=== PATIENT | male | born 1945 | race Caucasian/White ===

== ENCOUNTER → 2019-12-29 08:13 | Outpatient (CLI) | payer MEDICARE, SELFPAY ==
--- NOTE | ~2019-12-29 | US_ITS ---
EXAMINATION: US retroperitoneal comp EXAM DATE: 12/29/2019 09:28 INDICATION: Hematuria, right flank pain. TECHNIQUE: Multiple grayscale and Doppler images of the kidneys were obtained (by a technologist who performed the scan) and subsequently reviewed. There is no prior study for comparison. FINDINGS: Right kidney: There is normal contour and echogenicity. It measures 11.0 x 4.4 x 6.2 centimeters. T here are no focal renal lesions identified. There is no hydronephrosis. Left kidney: There is normal contour and echogenicity. It measures 10.6 x 6.2 x 6.4 centimeters. Th ere are no focal renal lesions identified. There is no hydronephrosis. Bladder unremarkable. Both ureteral jets were confirmed. IMPRESSION: 1. Sonographically unremarkable kidneys. Reviewed, dictated and finalized at location B. DEVELOPER
== END ==
PROVIDERS: PCP Internal Medicine; Visit Provider Internal Medicine
DX: R10.9 Unspecified abdominal pain (principal); R31.9 Hematuria, unspecified
CPT/HCPCS: 76770

== ENCOUNTER 2021-08-03 16:43 | Outpatient (CLI) | payer MEDICARE, SELFPAY ==
[2021-08-03 18:46] LABS: SARS-CoV-2 RNA PCR Positive (Negative)
== END 2021-08-03 16:44 | disposition home or self-care (01) ==
LOC: CHSLAB 16:47
PROVIDERS: PCP Internal Medicine; Visit Provider Internal Medicine
DX: U07.1 COVID-19 (principal); R53.83 Other fatigue; R50.9 Fever, unspecified
CPT/HCPCS: C9803; U0003; U0005

== ENCOUNTER 2021-08-05 10:01 | Outpatient (CLI) | payer MEDICARE, SELFPAY ==
[2021-08-05] MEDS: FAMOTIDINE 20 MG TABLET PO (10:20)
[2021-08-05] MEDS: ACETAMINOPHEN 325 MG TABLET 650 MG PO (10:20)
[2021-08-05] MEDS: diphenhydrAMINE HCl CAP 25 MG CAPSULE PO (10:20)
[2021-08-05 10:48] VITALS: BMI 20.7
[2021-08-05 10:49] VITALS: BP 140/70; PULSE 80; RESP 16; TEMP 37.2; O2SAT 93
[2021-08-05 12:15] VITALS: BP 128/70; PULSE 68; RESP 14; TEMP 37.1; O2SAT 95
--- NOTE | 2021-08-05 12:16 | PC.NURSE ---
Patient here for IV Casirivimab and IMdevimab r/t being positive for covid and meeting high risk criteria. Education on medication given. Permit signed. Po pre meds and IV Casirivimab/Imdevimab administered. SEE MAR. Tolerated well. Safe exit of hospital.
== END 2021-08-05 10:02 | disposition home or self-care (01) ==
LOC: CHSLAB 10:03 → CHSTREATRM 10:04
PROVIDERS: PCP Internal Medicine; Visit Provider Internal Medicine
DX: Z23 Encounter for immunization (principal); U07.1 COVID-19
CPT/HCPCS: A9270; J7050; M0243

== ENCOUNTER 2021-08-09 20:50 | Inpatient (IN) | payer MEDICARE, SELFPAY ==
--- NOTE | ~2021-08-09 | CT_ITS ---
EXAMINATION: CT diagnostic chest wo con DATE: 08/09/2021 22:05 INDICATION: SOB dx with COVID on 08/03. increasing weakness and SOB TECHNIQUE: Computed tomography (CT) of the chest was performed without intravenous contrast. Addition al 3D reconstructions utilizing coronal maximum intensity projection (MIP) were performed. Automated exposure control and iterative reconstruction technique were employed. The dose-length product was 16 7.86 mGy-cm. COMPARISON: 01/17/2018 FINDINGS: Severe paraseptal bullous emphysema upper lungs at the periphery of the upper lobes. Small left pleur al effusion with dependent consolidation and in the bilateral lower lobes with some surrounding patch y groundglass opacities. There does appear to be some associated volume loss in the lower lobes sugge sting this represents at least some degree of atelectasis or there is however also bronchial wall thi ckening and some mucous plugging of the bronchi suggesting superimposed aspiration or pneumonia. No p ulmonary edema. Heart size is normal. Atherosclerotic coronary artery calcification. No pericardial e ffusion. Mildly ectatic ascending thoracic aorta measuring up to 3.9 cm . No pathologically enlarged thoracic lymphadenopathy. A couple small calcified gallstones in the normal-appearing nondistended ga llbladder. There are bridging osteophytes at multiple levels in the spine, consistent with diffuse idiopathic sk eletal hyperostosis (DISH). IMPRESSION: 1. Consolidation groundglass opacities in the dependent aspect of the bilateral lower lobes which cou ld represent atelectasis, aspiration, pneumonia or some combination thereof. Appearance and distribut ion would be atypical for COVID pneumonia. Line 2. Severe paraseptal emphysema at the upper lobes. 3. Cholelithiasis. Reviewed, dictated and finalized at location A. IMPRESSION: 1. Consolidation groundglass opacities in the dependent aspect of the bilateral lower lobes which could represent atelectasis, aspiration, pneumonia or some c ombination thereof. Appearance and distribution would be atypical for COVID pne umonia. Line 2. Severe paraseptal emphysema at the upper lobes. 3. Cholelithiasis.
[2021-08-09 21:18] VITALS: BP 108/79; PULSE 95; RESP 20; TEMP 38; O2SAT 90
--- NOTE | 2021-08-09 21:24 | ECG_ITS ---
Measurements Intervals [place] Rate: 93 P: 63 CT: 191 QRS: 48 QRSD: 83 T: 66 QT: 346 QTc: 432 Interpretive Statements SINUS RHYTHM CANNOT RULE OUT SEPTAL INFARCT, AGE INDETERMINATE BASELINE ARTIFACT- II, III, AVF, V1 ABNORMAL ECG Electronically Signed On 08-10-2021 6:50:32 CDT by Leonel Mckay D.O.
[2021-08-09 21:40] VITALS: PULSE 86; RESP 18; O2SAT 92
[2021-08-09 21:46] VITALS: PULSE 86; RESP 18; O2SAT 92
[2021-08-09] MEDS: ALBUTEROL SULFATE (*SP) INHALER 2 PUFF INHALATION (21:47)
[2021-08-09 21:53] LABS: Basophils Absolute Auto 0.01 K/mm3 (0.00-0.10); Basophils Percent Auto 0.1 % (0.0-1.0); HCO3 ABG 27.2 mmol/L (23-29); Hematocrit 37.8 % (37.0-46.0); Hemoglobin 12.9 g/dL (12.4-15.3); Immature Granulocyte Absolute 0.05 K/mm3 (0.00-0.00); Immature Granulocyte Percent A 0.7 % (0.0-0.0); Lymphocytes Absolute Auto 0.77 K/mm3 (1.10-4.50); Lymphocytes Percent Auto 10.2 % (18.0-42.0); Mean Corpuscular HGB Conc 34.1 g/dL (32.0-36.0); Mean Corpuscular Hemoglobin 33.1 pg (27.0-31.0); Mean Corpuscular Volume 96.9 fL (78.0-102.0); Mean Platelet Volume 9.5 fl (8.7-11.0); Monocytes Absolute Auto 0.79 K/mm3 (0.10-0.90); Monocytes Percent Auto 10.5 % (2.0-11.0); Neutrophils Absolute Auto 5.9 K/mm3 (1.7-7.2); Neutrophils Percent Auto 78.5 % (50.0-70.0); Oxygen Content ABG 18.3 %vol (16.0-22.0); Oxygen Saturation ABG 95.4 % (95-97); PCO2 ABG 36.2 mmHg (35-45); PO2 ABG 76.4 mmHg (75-85); Platelet Count Result 158 K/mm3 (150-420); Red Cell Distribution Width 13.2 % (11.6-14.4); Total Hemoglobin 13.8 g/dL (12.0-18.0); White Blood Count 7.5 K/mm3 (4.8-10.8); pH ABG 7.49 (7.35-7.45)
[2021-08-09 21:54] LABS: Device ROOM AIR; Modified Allen's Test Pass; Site Drawn RIGHT BRACHIAL
[2021-08-09] MEDS: ONDANSETRON INJ 4 MG/2 ML VIAL IV PUSH (22:05)
[2021-08-09] MEDS: methylPREDNISolone SOD SUCC 125 MG VIAL IV PUSH (22:05)
[2021-08-09] MEDS: SODIUM CHLORIDE 0.9% IV 1,000 ML 150 ML IV CONT (22:05)
[2021-08-09 22:06] VITALS: BP 137/73; PULSE 88; RESP 20; TEMP 38; O2SAT 90
[2021-08-09 22:11] LABS: Alanine Aminotransferase 27 U/L (16-63); Albumin Level 2.9 g/dL (3.4-5.0); Alkaline Phosphatase 65 U/L (46-116); Anion Gap 10 mmol/L (8-16); Aspartate Amino Transferase 29 U/L (15-37); Bilirubin,Total 0.8 mg/dL (0.00-1.00); Blood Urea Nitrogen 10 mg/dL (7-18); Calcium 8.6 mg/dL (8.5-10.1); Carbon Dioxide 26 mmol/L (21-32); Chloride 99 mmol/L (98-108); Estimated CRCL calculation 63 ml/min; Estimated Glomerular Filt Rate > 60; Glucose 107 mg/dL (70-99); Osmolality Calculated 279 mOsm/kg (285-295); Potassium 3.9 mmol/L (3.5-5.1); Sodium 135 mmol/L (136-145); Total Protein 6.8 g/dL (6.4-8.2); Troponin I 7.9 ng/L (0.00-60.4)
[2021-08-09 22:30] VITALS: PULSE 78; RESP 20; O2SAT 87
[2021-08-09 23:04] LABS: Add Urine Microscopic? YES; Appearance Urine Clear (Clear); Bilirubin Urine 1+ (Negative); Blood Urine 2+ (Negative); Color Urine Yellow (Yellow); Glucose Urine UA Negative (Negative); Ketones Urine 2+ (Negative); Leukocyte Esterase Ur Negative (Negative); Nitrate Urine Negative (Negative); Protein Urine Trace (Negative); Specific Grav Ur 1.015 (1.010-1.020); pH Urine 6.5 (5.0-8.0)
--- NOTE | 2021-08-09 23:15 | ED.SOB ---
HPI - SOB/Dyspnea General Chief Complaint: Shortness of Breath/Dyspnea Stated Complaint: trouble urinating, no appetite Time Seen by Provider: 08/09/21 20:52 Source: patient and RN notes reviewed Mode of arrival: ambulatory Limitations: no limitations History of Present Illness MD elicited complaint: shortness of breath and cough Pertinent past history: COPD and pneumonia Onset (ago): day(s) (5) Timing: progressively worsening Severity: mild Exacerbating factors: exertion Relieving factors: oxygen and bronchodilators Known history of: COPD Associated symptoms: cough Related Data Home Medications Medication Instructions Recorded Confirmed gabapentin 600 mg PO QID 08/09/21 08/09/21 Allergies Allergy/AdvReac Type Severity Reaction Status Date / Time iohexol AdvReac Difficulty Verified 08/05/21 10:39 [From contrast - CT, X-RAY] Breathing Review of Systems Review of Systems: All systems reviewed & are unremarkable except as noted in HPI and below PMFSH Past Medical History Medical History Community acquired pneumonia Exam Const: General: no acute distress Nutritional Appearance: well nourished Orientation/consciousness: patient oriented x3 HENMT: Head: normal to inspection Ears: external ears normal and TM's normal bilaterally General nose exam: Normal external nose present and Normal nares present Face and sinus: normal facial exam Mouth: Yes moist mucous membranes Eyes: Conjunctivae: conjunctivae normal Pupils: Equal, round and reactive pupils present EOM: EOMs intact bilaterally Neck: Neck: normal visual inspection and no lymphadenopathy Chest: Chest palpation & inspection: normal inspection of the chest Resp: Effort & Inspection: normal respiratory effort Cardio: Rate: regular rate Rhythm: regular rhythm GI: GI Palp: Yes Soft to palpation (non-tender) Percussion: Yes normal to percussion Auscultation: normal bowel sounds : General: Yes bladder normal to palpation and Yes no CVA tenderness Male General Exam: Yes normal external exam Testes: Testes normal Back/Spine/Pelvis: Back: no CVA tenderness Skin: General skin exam: normal color Rashes: no rashes Neuro: General: patient oriented x3, moves all extremities, no meningeal signs, no focal motor deficits and CN's II-XI intact bilaterally Extrem: General: normal to inspection and no pedal edema Psych: Mental Status: mental status grossly normal Affect: normal affect Thought content: Yes Normal thought content present Course Course Emergency Course: Pt was ill in the ED. For admission. Reevaluation(s) Date: 08/09/21 Time: 22:15 Vital Signs Vital signs: Vital Signs Temperature 38.0 C H 08/09/21 21:18 Pulse Rate 95 08/09/21 21:18 Respiratory Rate 20 08/09/21 21:18 Blood Pressure 108/79 08/09/21 21:18 Pulse Oximetry 90 08/09/21 21:18 Temperature 38.0 C H 08/09/21 22:06 Pulse Rate 88 08/09/21 22:06 Respiratory Rate 20 08/09/21 22:06 Blood Pressure 137/73 08/09/21 22:06 Pulse Oximetry 90 08/09/21 22:06 MDM - SOB/Dyspnea Differential Diagnosis Differential diagnosis: Likely acute exacerbation of chronic obstructive airways disease and community acquired pneumonia Medical Records Attestation: I reviewed the patient's medical records. Lab Data Attestation: I reviewed the patient's lab results. Result diagrams: 08/09/21 21:50 08/09/21 21:50 Labs: Lab Results 08/09/21 08/09/21 08/09/21 Range/Units 21:50 21:50 23:01 WBC 7.5 (4.8-10.8) K/mm3 RBC 3.90 L (4.70-6.10) M/mm3 Hgb 12.9 (12.4-15.3) g/dL Hct 37.8 (37.0-46.0) % MCV 96.9 (78.0-102.0) fL MCH 33.1 H (27.0-31.0) pg MCHC 34.1 (32.0-36.0) g/dL RDW 13.2 (11.6-14.4) % Plt Count 158 (150-420) K/mm3 MPV 9.5 (8.7-11.0) fl Immature Gran % (Auto) 0.7 H (0.0-0.0) % Neut % (Auto) 78.5 H (50.0-70
[2021-08-09] MEDS: ACETAMINOPHEN 325 MG TABLET 650 MG PO (23:20)
[2021-08-09] MEDS: IBUPROFEN 400 MG TABLET 800 MG PO (23:21)
[2021-08-09 23:24] LABS: Bacteria Urine Trace /hpf; Mucus Urine Few /lpf; Squamous Epithelial Cell Urine Rare /hpf (Few); WBC Urine 0-3 /hpf (0-3)
[2021-08-09 23:38] VITALS: BP 128/69; PULSE 78; RESP 20; TEMP 37.9; O2SAT 94
[2021-08-09 23:55] LABS: SARS-CoV-2 Ag Negative (Negative)
[2021-08-10] VITALS (12 sets, daily range): BP systolic 122–146; BP diastolic 65–66; PULSE 56–80; RESP 16–20; TEMP 35.9–37.7; O2SAT 93–98; BMI 19.1
--- NOTE | 2021-08-10 00:30 | ADMGEN ---
This patient, Jai Turpin, was admitted to 2nd Floor Room 212-1. Patient oriented to hospital policies and general routines including ID bracelet, bed and alarms, visiting hours, pain management, procedures, bathroom and other care routines, personal items, smoking policy, room service/diet, call light and visiting hours. Information on how to activate the Rapid Response Team has been discussed. Patient are encouraged to report perceived risks to care and to ask questions if they do not understand what they are told or what they should do. Patient alert and oriented. Color pink. Respirations even and unlabored. Patient reports SOB with exertion, though none noted when patient ambulated from stretcher outside of room to bed. Lungs diminished to all bajwa. O2 on @ 4 lpm/nc. Abd soft and non-distended with +BS present. No edema noted. IV NS infusing to site in left inner forearm without difficulty. No distress noted. Call light in reach.
[2021-08-10 02:07] LABS: SARS-CoV-2 RNA PCR Positive (Negative)
[2021-08-10] MEDS: SODIUM CHLORIDE 0.9% IV 1,000 ML 100 ML IV CONT ×2 (04:01→13:45)
[2021-08-10] MEDS: methylPREDNISolone SOD SUCC 125 MG VIAL IV PUSH ×2 (04:01→09:26)
[2021-08-10 05:21] LABS: Basophils Absolute Auto 0.01 K/mm3 (0.00-0.10); Basophils Percent Auto 0.1 % (0.0-1.0); Hematocrit 39.3 % (37.0-46.0); Immature Granulocyte Absolute 0.05 K/mm3 (0.00-0.00); Immature Granulocyte Percent A 0.6 % (0.0-0.0); Lymphocytes Absolute Auto 0.53 K/mm3 (1.10-4.50); Lymphocytes Percent Auto 6.6 % (18.0-42.0); Mean Corpuscular HGB Conc 33.1 g/dL (32.0-36.0); Mean Corpuscular Volume 99.7 fL (78.0-102.0); Monocytes Absolute Auto 0.35 K/mm3 (0.10-0.90); Monocytes Percent Auto 4.3 % (2.0-11.0); Neutrophils Absolute Auto 7.1 K/mm3 (1.7-7.2); Neutrophils Percent Auto 88.4 % (50.0-70.0); Platelet Count Result 165 K/mm3 (150-420); Red Blood Count 3.94 M/mm3 (4.70-6.10); Red Cell Distribution Width 13.2 % (11.6-14.4); White Blood Count 8.1 K/mm3 (4.8-10.8)
[2021-08-10 05:36] LABS: Alanine Aminotransferase 25 U/L (16-63); Albumin Level 2.8 g/dL (3.4-5.0); Alkaline Phosphatase 61 U/L (46-116); Anion Gap 8 mmol/L (8-16); Aspartate Amino Transferase 24 U/L (15-37); Bilirubin,Total 0.7 mg/dL (0.00-1.00); Blood Urea Nitrogen 14 mg/dL (7-18); Calcium 8.1 mg/dL (8.5-10.1); Carbon Dioxide 28 mmol/L (21-32); Chloride 102 mmol/L (98-108); Estimated CRCL calculation 47 ml/min; Estimated Glomerular Filt Rate > 60; Glucose 155 mg/dL (70-99); Osmolality Calculated 289 mOsm/kg (285-295); Potassium 4.8 mmol/L (3.5-5.1); Sodium 138 mmol/L (136-145); Total Protein 6.5 g/dL (6.4-8.2)
[2021-08-10] MEDS: ACETAMINOPHEN 325 MG TABLET 650 MG PO ×3 (05:51→20:58)
[2021-08-10] MEDS: ALBUTEROL SULFATE (*SP) INHALER 2 PUFF INHALATION ×4 (05:52→23:47)
[2021-08-10] MEDS: GABAPENTIN 300 MG CAPSULE 600 MG PO ×4 (07:44→20:57)
[2021-08-10] MEDS: guaiFENesin 12 HR 600 MG TABCR (09:00)
[2021-08-10] MEDS: guaiFENesin 600 MG/DEXTROMETHORPHAN 30 MG SR TAB 12 HR 1 TAB PO (09:25)
[2021-08-10] MEDS: guaiFENesin/DEXTROMETHORPHAN 5 ML UDC 10 ML PO ×3 (12:00→23:46)
[2021-08-10] MEDS: REMDESIVIR 200 MG/NS 250 ML 200 MG/250 ML BAG 250 MG IVPB (12:35)
--- NOTE | 2021-08-10 13:22 | PM.IMHP ---
H&P: HPI History of Present Illness Date/Time: 08/10/21 13:22 Jai Turpin is a 76 year old male who comes to the hospital for shortness of breath. Pt lives with his and daughter. His is currently in the hospital with COVID. Pt also has COPD and still smokes about 1 and a half PPD. Pt tested positive for COVID on 08/03/2021. <IRWIN Boyd - Last Filed: 08/10/21 15:28> Chief Complaint: Shortness of Breath <IRWIN Boyd - Last Filed: 08/10/21 15:28> [facility] Past Medical History Medical History: Medical History Community acquired pneumonia <IRWIN Boyd - Last Filed: 08/10/21 15:28> Family History Family History: Family History Other Unknown family medical history <IRWIN Boyd - Last Filed: 08/10/21 15:28> Social History Social History: Social History Smoking packs per day: 1.5 Smoking cigarettes per day: 30.0 Years smoked: 58 Smoking pack-years: 87.00 Smoking status: Current every day smoker Tobacco type: cigarettes Second hand tobacco smoke exposure: Yes Alcohol intake: former Substance use: never Substance use type: does not use Spiritual care concerns: No <IRWIN Boyd - Last Filed: 08/10/21 15:28> Meds Home Medications and Allergies Home medications: Home Medications Medication Instructions Recorded Confirmed Type gabapentin 600 mg PO QID 08/09/21 08/09/21 History <IRWIN Boyd - Last Filed: 08/10/21 15:28> Allergies/Adverse reactions: Allergies Allergy/AdvReac Type Severity Reaction Status Date / Time iohexol AdvReac Difficulty Verified 08/05/21 10:39 [From contrast - CT, X-RAY] Breathing <IRWIN Boyd - Last Filed: 08/10/21 15:28> Vital Signs Vital Signs - 24 hr 08/09/21 21:18 08/09/21 21:40 08/09/21 21:46 Temperature 100.4 F H Pulse Rate 95 86 86 Respiratory Rate 20 18 18 Blood Pressure 108/79 Pulse Oximetry 90 92 92 08/09/21 22:06 08/09/21 22:30 08/09/21 23:38 Temperature 100.4 F H 100.2 F H Pulse Rate 88 78 78 Respiratory Rate 20 20 20 Blood Pressure 137/73 128/69 Pulse Oximetry 90 87 L 94 08/10/21 00:03 08/10/21 00:12 08/10/21 00:25 Temperature 100 F H 99.4 F 97.5 F L Pulse Rate 72 Respiratory Rate 20 Blood Pressure 133/66 Pulse Oximetry 97 08/10/21 04:00 08/10/21 05:10 08/10/21 08:00 Temperature 96.6 F L Pulse Rate 80 72 70 Respiratory Rate 20 16 Blood Pressure 146/65 H Pulse Oximetry 97 98 08/10/21 10:43 Temperature Pulse Rate Respiratory Rate Blood Pressure Pulse Oximetry 98 <Duy Lopez, HORTICULTURAL MANAGER-C - Last Filed: 08/10/21 15:28> H&P: Results Labs Labs: Short CBC 08/09/21 08/10/21 Range/Units 21:50 05:14 WBC 7.5 8.1 (4.8-10.8) K/mm3 Hgb 12.9 13.0 (12.4-15.3) g/dL Hct 37.8 39.3 (37.0-46.0) % Plt Count 158 165 (150-420) K/mm3 [facility] 08/09/21 08/10/21 21:50 05:14 Sodium 135 L 138 Potassium 3.9 4.8 Chloride 99 102 Carbon Dioxide 26 28 BUN 10 14 Creatinine 0.69 L 0.93 Glucose 107 H 155 H Calcium 8.6 8.1 L Cardiac Enzymes 08/09/21 Range/Units 21:50 Troponin I 7.9 (0.00-60.4) ng/L Liver Function 08/09/21 08/10/21 Range/Units 21:50 05:14 Total Bilirubin 0.8 0.7 (0.00-1.00) mg/dL AST 29 24 (15-37) U/L ALT 27 25 (16-63) U/L Alkaline Phosphatase 65 61 (46-116) U/L Albumin 2.9 L 2.8 L (3.4-5.0) g/dL Urine 08/09/21 Range/Units 23:01 Urine Color Yellow (Yellow) Urine Appearance Clear (Clear) Urine pH 6.5 (5.0-8.0) Ur Specific [place] 1.015 (1.010-1.020) Urine Protein Trace H (Negative) Urine Glucose (UA) Negative (Negative) <Duy Lopez, HORTICULTURAL MANAGER-C - Last Filed: 08/10/21
[2021-08-10] MEDS: ENOXAPARIN 40 MG/0.4 ML SYRINGE SUB-Q (14:11)
--- NOTE | 2021-08-10 15:29 | PM.IMHP ---
H&P: HPI History of Present Illness Date/Time: 08/10/21 15:29 Jai Turpin is a 76 year old male who comes to the hospital for shortness of breath. Pt lives with his and daughter. His is currently in the hospital with COVID. Pt also has COPD and still smokes about 1 and a half PPD. Pt tested positive for COVID on 08/03/2021 and his symptoms started a few days prior. Pt denies fever, CP, abdominal pain, muscle and joint pain. He did say he was a little cold and had SOB with coughing. <IRWIN Boyd - Last Filed: 08/10/21 15:34> Chief Complaint: Shortness of Breath, Tested COVID positive on 08/03/2021 <IRWIN Boyd - Last Filed: 08/10/21 15:34> Review of Systems Constitutional: Constitutional: Reports no additional constitutional complaints, Denies body ache(s), Denies chills and Denies fever(s) <IRWIN Boyd - Last Filed: 08/10/21 15:34> Cardiovascular: Cardiovascular: Reports no additional cardiovascular complaints, Denies chest pain and Denies chest pain at rest <IRWIN Boyd - Last Filed: 08/10/21 15:34> Respiratory: Respiratory: Reports no additional respiratory complaints, Reports cough, Reports dyspnea and Reports dyspnea on exertion <IRWIN Boyd - Last Filed: 08/10/21 15:34> Gastrointestinal: Gastrointestinal: Reports no additional gastrointestinal complaints, Denies abdominal pain, Denies diarrhea, Denies nausea and Denies vomiting <IRWIN Boyd - Last Filed: 08/10/21 15:34> Genitourinary: Genitourinary: Reports no additional male genitourinary complaints <IRWIN Boyd - Last Filed: 08/10/21 15:34> Musculoskeletal: Musculoskeletal: Reports no additional musculoskeletal complaints, Denies back pain, Denies myalgias, Denies arthralgias and Reports muscle weakness <IRWIN Boyd - Last Filed: 08/10/21 15:34> Neurologic: Reports system reviewed and no additional complaints, except as documented, Denies dizziness, Denies syncope, Denies headache(s) and Denies focal weakness <IRWIN Boyd - Last Filed: 08/10/21 15:34> Psychiatric: Psychiatric: Reports no additional psychiatric complaints <IRWIN Boyd - Last Filed: 08/10/21 15:34> [facility] Past Medical History Medical History: Medical History Community acquired pneumonia <IRWIN Boyd - Last Filed: 08/10/21 15:34> Family History Family History: Family History Other Unknown family medical history <IRWIN Boyd - Last Filed: 08/10/21 15:34> Social History Social History: Social History Smoking packs per day: 1.5 Smoking cigarettes per day: 30.0 Years smoked: 58 Smoking pack-years: 87.00 Smoking status: Current every day smoker Tobacco type: cigarettes Second hand tobacco smoke exposure: Yes Alcohol intake: former Substance use: never Substance use type: does not use Spiritual care concerns: No <IRWIN Boyd - Last Filed: 08/10/21 15:34> Meds Home Medications and Allergies Home medications: Home Medications Medication Instructions Recorded Confirmed Type gabapentin 600 mg PO QID 08/09/21 08/09/21 History <IRWIN Boyd - Last Filed: 08/10/21 15:34> Allergies/Adverse reactions: Allergies Allergy/AdvReac Type Severity Reaction Status Date / Time iohexol AdvReac Difficulty Verified 08/05/21 10:39 [From contrast - CT, X-RAY] Breathing <IRWIN Boyd - Last Filed: 08/10/21 15:34> Vital Signs Vital Signs - 24 hr 08/09/21 21:18 08/09/21 21:40 08/09/21 21:46 Temperature 100.4 F H Pulse Rate 95 86 86 Respiratory Rate 20 18 18 Blood Pressure 108/79 Pulse Oximetry 90 92 92 08/09/21 22:06 08/09/21 22:30 08/09/21 23:38 Temperature 100.4 F H 100.
[2021-08-10] MEDS: DEXAMETHASONE SOD PHOS INJ 4 MG/ML VIAL 6 MG IV PUSH (17:13)
[2021-08-10] MEDS: BISACODYL 5 MG TABLET EC PO (17:13)
--- NOTE | 2021-08-10 17:30 | PC.NURSE ---
PT ASKED IF NURSE COULD CHECK HIS BLOOD SUGAR, STATES THAT HE JUST FEELS LIKE IT IS LOW, FSBS 288, PT JUST ATE DINNER. STATES HE JUST FEELS REALLY TIRED AND WHOOZY . ALSO STATES HE HASN'T SLEPT REALLY WELL IN A WHILE. HELPED REPOSITION PATIENT, COMFORTABLE, FRESH ICE WATER PROVIDED, CALL LIGHT IN REACH.
[2021-08-10 17:49] LABS: Glucose Point of Care 288 mg/dl (65-105)
[2021-08-10] MEDS: AMITRIPTYLINE HCL 25 MG TABLET 75 MG PO (20:57)
--- NOTE | 2021-08-10 21:36 | PC.NURSE ---
Patient continues on isolation for Covid 19. Patient on 2L per nasal cannula. Denies SOB, congestion nasal present. Continues with dry non productive cough. IS-1500, patient doing well with IS and encouraging from financial writer. Continue to monitor.
[2021-08-11] VITALS (8 sets, daily range): BP systolic 125–138; BP diastolic 67–74; PULSE 62–99; RESP 18–20; TEMP 35.8–36.8; O2SAT 90–98
[2021-08-11] MEDS: SODIUM CHLORIDE 0.9% IV 1,000 ML 100 ML IV CONT (04:35)
--- NOTE | 2021-08-11 05:13 | PC.NURSE ---
Patient has dislodged IV catheter to LFA. Leaking at insertion site. IV was removed from LFA. New IV insertion to [facility], 22g. Blood return noted. Denied any c/o pain during insertion. Flushes without difficulty. disability insurance hearing officer notified.
[2021-08-11] MEDS: ALBUTEROL SULFATE (*SP) INHALER 2 PUFF INHALATION ×2 (05:41→12:00)
[2021-08-11] MEDS: guaiFENesin/DEXTROMETHORPHAN 5 ML UDC 10 ML PO ×2 (05:41→11:58)
[2021-08-11] MEDS: ACETAMINOPHEN 325 MG TABLET 650 MG PO ×2 (05:41→14:22)
[2021-08-11 05:48] LABS: Hematocrit 34.5 % (37.0-46.0); Hemoglobin 11.4 g/dL (12.4-15.3); Mean Corpuscular Hemoglobin 32.9 pg (27.0-31.0); Mean Corpuscular Volume 99.7 fL (78.0-102.0); Mean Platelet Volume 9.9 fl (8.7-11.0); Platelet Count Result 199 K/mm3 (150-420); Red Blood Count 3.46 M/mm3 (4.70-6.10); Red Cell Distribution Width 13.2 % (11.6-14.4); White Blood Count 11.5 K/mm3 (4.8-10.8)
[2021-08-11 06:02] LABS: INR 1.1; Prothrombin Time 11.4 Seconds (9.50-12.10)
[2021-08-11 06:05] LABS: Alanine Aminotransferase 21 U/L (16-63); Anion Gap 5 mmol/L (8-16); Blood Urea Nitrogen 24 mg/dL (7-18); Carbon Dioxide 28 mmol/L (21-32); Chloride 103 mmol/L (98-108); Estimated CRCL calculation 43 ml/min; Estimated Glomerular Filt Rate > 60; Glucose 189 mg/dL (70-99); Osmolality Calculated 291 mOsm/kg (285-295); Potassium 4.7 mmol/L (3.5-5.1); Sodium 136 mmol/L (136-145)
[2021-08-11] MEDS: NICOTINE (*PBKC) 21 MG PATCH 1 PATCH TRANSDERM (08:03)
[2021-08-11] MEDS: BISACODYL 5 MG TABLET EC PO (08:04)
[2021-08-11] MEDS: GABAPENTIN 300 MG CAPSULE 600 MG PO ×2 (08:04→13:05)
[2021-08-11] MEDS: ENOXAPARIN 40 MG/0.4 ML SYRINGE SUB-Q (08:04)
--- NOTE | 2021-08-11 10:38 | HOMEO2EVAL ---
Evaluation was performed at [facility] Home Oxygen Evaluation RC: Home Oxygen (O2) Evaluation Start: 08/11/21 08:46 Freq: ONCE Status: Active Protocol: RPE Activity Type Activity Date Activity User E-Sign Co-Sign Detail Recorded Client Recorded Date Recorded By Document 08/11/21 08:46 KLV [id number] 08/11/21 10:06 KLV Document 08/11/21 10:24 SJB [id number] 08/11/21 10:38 SJB Document 08/11/21 10:30 SJB [id number] 08/11/21 10:38 SJB 08/11/21 08/11/21 08/11/21 08:46 10:24 10:30 Home O2 Evaluation Test Phase Resting Resting Exercise Oxygen Delivery Room Air Room Air Room Air Pulse Oximetry (90-100 %) 92 92 90 Pulse Rate (60-100 beats/min) 83 99 Activity Tolerance Good Rating of Perceived Dyspnea (PD) +1 Mild, Noticeable to the Participant but Not to an Observer Rate of Perceived Exertion (PE) 11 Fairly light Ambulation Distance (feet) 400 Home Oxygen Evaluation Comments Will begin walk Pt walked unassisted on room air approx . 400 ft. Sp02 remained WNL as well as HR. PLB encouraged . Treatment Charges O2 Evaluation - Inpatient
--- NOTE | 2021-08-11 11:00 | PM.DS ---
DS: Admitting Diagnosis Discharge Date 08/11/2021 Admitting Diagnosis COVID, COPD DS: Discharge Diagnosis Discharge Diagnosis (1) COVID: Code(s): U07.1 - COVID-19 Status: Acute Assessment and Plan: Positive PCR 08/03/2021, started Remdesivir, Decadron, Albuterol, Rocephin, Azithromycin, Pt given 125mg Methylprednisolone in ER and 1 dose on the floor this AM, supplemental oxygen currently 4L/min NC, expiratory wheezing with scattered rhonchi, no increased WOB or SOB, NS 100ml/h 08/11/2021 Pt is on RA with SpO2 of 93% or better, He passed his Home O2 test. Pt not having any SOB, mild rhonchi in posterior bases otherwise clear, normal respiratory effort (2) Community acquired pneumonia: Qualifiers: Laterality: unspecified laterality Qualified Code(s): J18.9 - Pneumonia, unspecified organism Code(s): J18.9 - Pneumonia, unspecified organism Status: Acute Assessment and Plan: Being covered with Rocephin and Azithromycin, radiology report IMPRESSION: 1. Consolidation groundglass opacities in the dependent aspect of the bilateral lower lobes which could represent atelectasis, aspiration, pneumonia or some combination thereof. Appearance and distribution would be atypical for COVID pneumonia. 2. Severe paraseptal emphysema at the upper lobes. 3. Cholelithiasis. will give Incentive Spirometer. 08/11/2021 will send home with Ab to complete course (3) Acute exacerbation of chronic obstructive airways disease: Code(s): J44.1 - Chronic obstructive pulmonary disease with (acute) exacerbation Status: Acute Assessment and Plan: Pt had Methylprednisolone in ER and on the floor, now just Decadron, supplemental oxygen, Albuterol, Robitussin DM Q6H, Ipratropium and Tiotropium, Rocephin and Azithromycin as noted above. 08/11/2021 will send home with steroid taper pack, Pt doing well, RA with SpO2 93% or better. DS: Summary Hospital Course Hospital Course: Pt has no SOB,l on RA with SpO2 93% or better, improved lung sounds. Time Spent with Patient Time attestation: Total time spent providing and/or coordinating discharge services: < 30 Minutes Exam Const: General: cooperative, comfortable, no acute distress, alert, awake and Physically active Nutritional Appearance: thin Resp: Effort & Inspection: normal respiratory effort Auscultation: rhonchi (mild in posteroir basis) Cardio: Rate: regular rate Heart sounds: S1 normal heart sound present and S2 normal heart sound present GI: GI Palp: Yes Soft to palpation and No Tenderness to palpation present (GI) Auscultation: normal bowel sounds Skin: General skin exam: normal color and dry skin Neuro: General: oriented to person, oriented to place and oriented to time Cranial nerves: Yes CN's II-XII intact bilaterally (grossly intact) Cognition (Neuro): normal cognition Extrem: General: full ROM and no pedal edema Psych: Appearance: grossly normal Mental Status: mental status grossly normal Speech and movement: Normal speech and movement present Affect: normal affect Attitude: cooperative Thought process: Normal thought process present DS: Data Data Completed and Pending Labs on day of discharge: Labs from last 24 hours 08/11/21 08/11/21 08/11/21 05:42 05:42 05:42 WBC 11.5 H RBC 3.46 L Hgb 11.4 L Hct 34.5 L MCV 99.7 MCH 32.9 H MCHC 33.0 RDW 13.2 Plt Count 199 MPV 9.9 PT 11.4 INR 1.1 Sodium 136 Potassium 4.7 Chloride 103 Carbon Dioxide 28 Anion Gap 5 L BUN 24 H Creatinine 1.04 Estim Creat Clear Calc 43 Estimated GFR > 60 Glucose 189 H POC Capillary Glucose Calculated Osmolality 291 Calcium 8.0 L ALT 08/10/21 17:33 WBC RBC Hgb Hct MCV MCH MCHC RDW Plt Count MPV PT INR Sodium Potassium Chloride Carbon Dioxide Anion Gap BUN Creatinine Estim Creat Clear Calc Estimated GFR Glucose POC Capill
--- NOTE | 2021-08-11 11:54 | PC.NURSE ---
patient is tolerating well on room air. 94%. iv fluids stopped.
[2021-08-11] MEDS: REMDESIVIR 100 MG/NS 250 ML 100 MG/250 ML BAG 250 MG IVPB (11:59)
--- NOTE | 2021-08-11 16:10 | PC.NURSE ---
Patient discharged home transported by family member via personal vehicle. Discharge instructions given and patient acknowledged understanding. IV site discontinued and removed. personal belongings bagged and carried out w/Staff escorting patient to main entrance ambulating per self w/no assist and placed in vehicle for transport home with spouse and family member.
--- NOTE | 2021-08-18 13:50 | PC.NURSE ---
Unable to contact for discharge call back.
== END 2021-08-11 16:07 | disposition home health service (06) | DRG 177 ==
LOC: CHSED 23:16 → CHS2ND 08-10 07:20
PROVIDERS: Admitting Provider Emergency Medicine; Emergency Provider Emergency Medicine; PCP Internal Medicine; Visit Provider Nurse Practitioner Family
DX: U07.1 COVID-19 (principal); J18.9 Pneumonia, unspecified organism; J44.0 Chronic obstructive pulmonary disease with (acute) lower respiratory infection; J44.1 Chronic obstructive pulmonary disease with (acute) exacerbation; F17.200 Nicotine dependence, unspecified, uncomplicated
CPT/HCPCS: 36415; 36600; 71250; 80048; 80053; 81001; 82805; 82948; 84460; 84484; 85025; 85027; 85610; 87040; 87426; 93005; 94618; 94640; 96365; 96375; 99285; A9270; C9803; J0456; J0696; J1100; J1650; J2405; J2930; J7030; U0003; U0005

== ENCOUNTER 2021-08-22 13:54 | Outpatient (CLI) | payer MEDICARE, SELFPAY ==
--- NOTE | ~2021-08-22 | XR_ITS ---
XR chest 2V DATE: 08/22/2021 15:00 INDICATION: Covid pneumonia TECHNIQUE: PA and lateral views COMPARISON: 08/09/2021 CT chest FINDINGS: Bilateral hyperinflation, consistent with COPD. No pulmonary consolidation, pleural effusion, pulmonary vascular congestion or pneumothorax is eviden t. Normal heart size. Aortic calcification and unfolding. No hilar or mediastinal enlargement. Osteopenia. Degenerative spurring of the thoracic spine. IMPRESSION: COPD Reviewed, dictated and finalized at location A. IMPRESSION: COPD
[2021-08-22 14:20] LABS: Basophils Absolute Auto 0.02 K/mm3 (0.00-0.10); Basophils Percent Auto 0.3 % (0.0-1.0); Eosinophils Absolute Auto 0.07 K/mm3 (0.02-0.50); Eosinophils Percent Auto 1.2 % (1.0-6.0); Hematocrit 37.1 % (37.0-46.0); Hemoglobin 12.2 g/dL (12.4-15.3); Immature Granulocyte Absolute 0.03 K/mm3 (0.00-0.00); Immature Granulocyte Percent A 0.5 % (0.0-0.0); Lymphocytes Absolute Auto 1.16 K/mm3 (1.10-4.50); Lymphocytes Percent Auto 19.4 % (18.0-42.0); Mean Corpuscular HGB Conc 32.9 g/dL (32.0-36.0); Mean Corpuscular Hemoglobin 33.5 pg (27.0-31.0); Mean Corpuscular Volume 101.9 fL (78.0-102.0); Mean Platelet Volume 9.2 fl (8.7-11.0); Monocytes Absolute Auto 0.77 K/mm3 (0.10-0.90); Monocytes Percent Auto 12.9 % (2.0-11.0); Neutrophils Absolute Auto 3.9 K/mm3 (1.7-7.2); Neutrophils Percent Auto 65.7 % (50.0-70.0); Platelet Count Result 228 K/mm3 (150-420); Red Blood Count 3.64 M/mm3 (4.70-6.10); Red Cell Distribution Width 13.7 % (11.6-14.4)
[2021-08-22 14:35] LABS: Alanine Aminotransferase 27 U/L (16-63); Albumin Level 3.2 g/dL (3.4-5.0); Alkaline Phosphatase 75 U/L (46-116); Anion Gap 6 mmol/L (8-16); Aspartate Amino Transferase 20 U/L (15-37); Bilirubin,Total 0.5 mg/dL (0.00-1.00); Blood Urea Nitrogen 15 mg/dL (7-18); Calcium 9.2 mg/dL (8.5-10.1); Carbon Dioxide 33 mmol/L (21-32); Chloride 103 mmol/L (98-108); Estimated Glomerular Filt Rate > 60; Glucose 97 mg/dL (70-99); Osmolality Calculated 294 mOsm/kg (285-295); Potassium 5.2 mmol/L (3.5-5.1); Sodium 142 mmol/L (136-145); Total Protein 7.1 g/dL (6.4-8.2)
== END 2021-08-22 13:55 | disposition home or self-care (01) ==
PROVIDERS: PCP Internal Medicine; Visit Provider Internal Medicine
DX: U07.1 COVID-19 (principal); J12.82 Pneumonia due to coronavirus disease 2019; J44.0 Chronic obstructive pulmonary disease with (acute) lower respiratory infection
CPT/HCPCS: 36415; 71046; 80053; 85025

== ENCOUNTER → 2022-06-03 00:10 | Outpatient (CLI) | payer MEDICARE, SELFPAY ==
[2022-06-03 11:31] LABS: SARS-CoV-2 RNA PCR Negative
== END ==
PROVIDERS: PCP Internal Medicine; Visit Provider Internal Medicine
DX: Z20.822 Contact with and (suspected) exposure to COVID-19 (principal); R06.02 Shortness of breath; R05.9 Cough, unspecified
CPT/HCPCS: C9803; U0003; U0005

== ENCOUNTER → 2022-06-08 11:25 | Outpatient (CLI) | payer MEDICARE, SELFPAY ==
--- NOTE | ~2022-06-08 | XR_ITS ---
XR chest 2V 06/08/2022 11:50 Indication: Shortness of breath and cough Procedure: 2 view chest Comparison: 08/22/2021 Findings: There is a large left pneumothorax with collapse of the left lung. Small left pleural effus ion. The lungs are hyperinflated which is consistent with, but not diagnostic of chronic obstructive pulmonary disease. Heart size normal. Impression: 1: Large left pneumothorax with collapse of the left lung. Reviewed, dictated and finalized at location A. Impression: 1: Large left pneumothorax with collapse of the left lung.
== END ==
PROVIDERS: PCP Internal Medicine; Visit Provider Internal Medicine
DX: R06.02 Shortness of breath (principal); R05.9 Cough, unspecified; J93.9 Pneumothorax, unspecified; J98.19 Other pulmonary collapse
CPT/HCPCS: 71046

== ENCOUNTER 2022-06-08 12:07 | Outpatient (CLI) | payer MEDICARE, SELFPAY ==
[2022-06-08 13:32] LABS: Influenza Control Positive
== END 2022-06-08 12:08 | disposition home or self-care (01) ==
LOC: ANHLAB 12:14
PROVIDERS: PCP Internal Medicine; Visit Provider Internal Medicine
DX: R06.02 Shortness of breath (principal); R05.9 Cough, unspecified
CPT/HCPCS: 87081; 87804; 87880

== ENCOUNTER 2022-06-08 15:43 | Inpatient (IN) | payer MEDICARE, SELFPAY ==
[2022-06-08] VITALS (10 sets, daily range): BP systolic 110–144; BP diastolic 67–89; PULSE 64–115; RESP 18–22; TEMP 37.2; O2SAT 93–100
--- NOTE | ~2022-06-08 | XR_ITS ---
XR chest 1V portable 06/11/2022 05:28 Indication: Left pneumothorax Procedure: AP portable chest Comparison: Comparison to multiple prior studies sequentially, with oldest reviewed study dated 06/08. Findings: Stable position to left chest tube. Stable small left pneumothorax. There is near complete consolidation of the left lung. There is persistent diffuse subcutaneous emphysema. There is bilatera l airspace disease which may represent edema, atelectasis and/or pneumonia. Impression: 1: Diffuse bilateral airspace disease, left greater than right which may represent edema, atelectasis and/or pneumonia. 2: Stable small left pneumothorax. Stable position to left chest tube. Reviewed, dictated and finalized at location A. Impression: 1: Diffuse bilateral airspace disease, left greater than right which may repres ent edema, atelectasis and/or pneumonia. 2: Stable small left pneumothorax. Stable position to left chest tube.
--- NOTE | ~2022-06-08 | XR_ITS ---
EXAMINATION: XR chest-chest tube insert/pos Exam Date/Time: 06/10/2022 15:10 CDT HISTORY: REPOSITIONED CHEST TUBE Comparison: Same date at 5:40 AM. RESULT: Lines, tubes, and devices: Left chest tube retraction, side port remains within the thoracic cavity. Lungs and pleura: Decreased size of the now small left pneumothorax. Better aeration of the left syed g, diffuse airspace and interstitial opacities as well as volume loss. Increased interstitial opaciti es in the right lung. Cardiomediastinal silhouette: Stable cardiomediastinal silhouette. Other: No acute osseous or upper abdominal finding. Stable subcutaneous emphysema. IMPRESSION: Retracted left chest tube, in good position. Decreased size of the left pneumothorax. Improved aerati on of the left lung, with persistent atelectasis/consolidation. Mild interstitial edema. Similar diff use subcutaneous emphysema. Reviewed, dictated and finalized at location K. IMPRESSION: Retracted left chest tube, in good position. Decreased size of the left pneumot horax. Improved aeration of the left lung, with persistent atelectasis/consolid ation. Mild interstitial edema. Similar diffuse subcutaneous emphysema.
--- NOTE | ~2022-06-08 | XR_ITS ---
EXAMINATION: XR chest-chest tube insert/pos DATE: 06/09/2022 00:02 INDICATION: Chest tube placement TECHNIQUE: frontal view of the chest was obtained. COMPARISON: Chest radiograph dated 06/08/[address] dated 08/09/2021 FINDINGS: Significant improvement in aeration of the left lung with decrease in size of a now small left pneumo thorax. Unchanged left chest tube. Diffuse coarse airspace opacities throughout the left lung which c ould represent atelectasis, pulmonary edema or pneumonia superimposed over emphysema, the latter for better appreciated on prior chest CT. The right lung remains clear. No pleural effusion or right-side d pneumothorax. Cardiomediastinal silhouette is normal. Subcutaneous emphysema on the lateral left ch est wall. IMPRESSION: 1. Decrease in size of a now small left pneumothorax with unchanged left chest tube. 2. Opacities throughout the left lung which could represent atelectasis, pulmonary edema or pneumonia superimposed over emphysema. Reviewed, dictated and finalized at location A. IMPRESSION: 1. Decrease in size of a now small left pneumothorax with unchanged left chest tube. 2. Opacities throughout the left lung which could represent atelectasis, pulmon gene edema or pneumonia superimposed over emphysema.
--- NOTE | ~2022-06-08 | XR_ITS ---
EXAMINATION: XR chest 1V portable DATE: 06/14/2022 06:16 INDICATION: Pneumothorax present with crepitus and discomfort around chest tube site. TECHNIQUE: frontal view of the chest was obtained. COMPARISON: Chest radiograph dated 06/13/2022 FINDINGS: No significant change in the small paramediastinal left pneumothorax. There is been some improvement in the coarse reticular and airspace opacities in the left mid to lower lung zone. Consolidation at t he margins of the left lower lung zone which could represent additional lung disease or possibly smal l pleural effusion. Increased lucency and architectural distortion at the upper lung zones consistent with emphysema. Mild right apical pleural-parenchymal scarring. No right-sided pneumothorax or pleur al effusion. The cardiomediastinal silhouette is normal. No significant interval change in subcutaneo us gas in the left chest wall extending into the base of the neck of the right and to lesser degree l eft as well as into the proximal aspect of the left upper arm. IMPRESSION: 1. Unchanged small left pneumothorax or potentially hydropneumothorax. 2. Interval decrease in the mid and upper lung zones of the diffuse coarse reticular and airspace opa cities throughout the left lung consistent with improving atelectasis, pulmonary edema or pneumonia s uperimposed over emphysema. Reviewed, dictated and finalized at location A. IMPRESSION: 1. Unchanged small left pneumothorax or potentially hydropneumothorax. 2. Interval decrease in the mid and upper lung zones of the diffuse coarse reti cular and airspace opacities throughout the left lung consistent with improving atelectasis, pulmonary edema or pneumonia superimposed over emphysema.
--- NOTE | ~2022-06-08 | XR_ITS ---
EXAMINATION: XR chest-chest tube insert/pos DATE: 06/08/2022 17:58 INDICATION: Left pneumothorax status post chest tube placement. TECHNIQUE: A single frontal view of the chest was obtained. COMPARISON: Chest 2 views at 11:50 AM, chest CT 08/09/2021 FINDINGS: There is a moderate-sized left pneumothorax. There are lucencies and reticular opacities in the lungs, consistent with emphysema. There is atelectasis in left upper lobe and left lower lobe. T here is a left-sided chest tube. No pleural effusion. The heart size is normal. IMPRESSION: 1. Moderate-sized left pneumothorax with improvement status post chest tube placement. 2. Emphysema. Reviewed, dictated and finalized at location A. IMPRESSION: 1. Moderate-sized left pneumothorax with improvement status post chest tube tressa cement. 2. Emphysema.
--- NOTE | ~2022-06-08 | XR_ITS ---
EXAMINATION: XR chest 2V DATE: 06/13/2022 07:50 INDICATION: Pneumothorax TECHNIQUE: AP and lateral views of the chest were obtained. COMPARISON: Chest radiograph dated 06/12/2022 FINDINGS: Left chest tube has been removed. There is a persistent small left pneumothorax now seen primarily al evelina the mediastinal aspect of the upper lung zone as well as anteriorly. Again seen are coarse reticu lar and patchy airspace opacities throughout the left lung but with significant improvement of aerati on of the previously densely consolidated left mid to lower lung zones. Small left pleural effusion n ot excludable. No right-sided pleural effusion or pneumothorax. The cardiomediastinal silhouette is n ormal. Chronic mild anterior wedging of a few mid thoracic vertebral bodies. There are bridging osteo phytes at multiple levels consistent with diffuse idiopathic skeletal hyperostosis (DISH). Persistent subcutaneous edema along the left hemithorax. IMPRESSION: 1. No significant interval change in a residual small left pneumothorax post left chest tube removal. 2. Significant improvement in aeration in the left mid to lower lung zones with persistent coarse ret icular and patchy airspace opacities throughout the left lung which could represent atelectasis or pn eumonia, potentially with small left pleural effusion. Reviewed, dictated and finalized at location A. IMPRESSION: 1. No significant interval change in a residual small left pneumothorax post le ft chest tube removal. 2. Significant improvement in aeration in the left mid to lower lung zones with persistent coarse reticular and patchy airspace opacities throughout the left lung which could represent atelectasis or pneumonia, potentially with small lef t pleural effusion.
--- NOTE | ~2022-06-08 | XR_ITS ---
EXAMINATION: XR chest 1V portable DATE: 06/09/2022 05:50 INDICATION: Dyspnea. Pneumothorax. TECHNIQUE: frontal view of the chest was obtained. COMPARISON: Chest radiograph dated 06/08/2022 FINDINGS: Slight increase in size of a moderate left pneumothorax. Left chest tube remains positioned along the lateral side of the partially collapsed left lung. There are coarse reticular opacities in the left mid to upper lung with increasing more dense consolidation in the left lower lung zone. Calcified nod ule in the right lung consistent with old granulomatous disease. No pleural effusion or right-sided p neumothorax. Increased lucency and architectural distortion at the right upper lung zone consistent w ith underlying emphysema. Cardiomediastinal silhouette is normal. IMPRESSION: 1. Slight increase in a still moderate-sized left pneumothorax with increasing collapse of the left l kellee. 2. Opacities throughout the left lung with worsening consolidation in the left lower lung zone which could represent atelectasis, pneumonia or combination thereof.- 3. Emphysema. Reviewed, dictated and finalized at location A. IMPRESSION: 1. Slight increase in a still moderate-sized left pneumothorax with increasing collapse of the left lung. 2. Opacities throughout the left lung with worsening consolidation in the left lower lung zone which could represent atelectasis, pneumonia or combination the reof.- 3. Emphysema.
--- NOTE | ~2022-06-08 | XR_ITS ---
XR chest 1V portable 06/10/2022 05:51 Indication: Left pneumothorax Procedure: AP portable chest Comparison: Comparison to multiple prior studies sequentially, with oldest reviewed study dated 06/08. Findings: Moderate persistent left pneumothorax with collapse of the left lung. There is subcutaneous emphysema of the chest wall bilaterally and neck. Stable cardiomediastinal silhouette allowing for t echnique. Impression: 1: Persistent moderate left pneumothorax with stable position to chest tube. 2: Collapse of the left lung with diffuse consolidation. 3: Subcutaneous emphysema. Reviewed, dictated and finalized at location A. Impression: 1: Persistent moderate left pneumothorax with stable position to chest tube. 2: Collapse of the left lung with diffuse consolidation. 3: Subcutaneous emphysema.
--- NOTE | ~2022-06-08 | XR_ITS ---
EXAMINATION: XR chest 2V DATE: 06/12/2022 07:33 INDICATION: Left pneumothorax. Chest tube on waterseal. TECHNIQUE: frontal view of the chest was obtained. COMPARISON: Chest radiograph dated 06/11/2022 FINDINGS: Left chest tube remains in place with tip at the lateral aspect of the midlung zone. Unchanged small left pneumothorax at the lateral aspect of the upper lung zone. There is volume loss in the left stanton thorax with leftward shift of the heart and compensatory mild hyperexpansion of the right lung. Airsp page opacities throughout the left lung with dense consolidation in the left mid and lower lung zones. Increased lucency and architectural distortion of the apices of lungs with biapical pleural-parenchy mal scarring. Cardiac silhouette is obscured but is not enlarged. Centimeters subcutaneous emphysema along the left chest wall extending to the base of the neck on both the left and right. IMPRESSION: 1. Unchanged small left pneumothorax with unchanged position of a left chest tube. 2. Opacities throughout the left lung with dense consolidation in the left mid and lower lung zones w hich could represent atelectasis or pneumonia. Associated small left pleural effusion is also not exc ludable. Reviewed, dictated and finalized at location A. IMPRESSION: 1. Unchanged small left pneumothorax with unchanged position of a left chest tu be. 2. Opacities throughout the left lung with dense consolidation in the left mid and lower lung zones which could represent atelectasis or pneumonia. Associated small left pleural effusion is also not excludable.
--- NOTE | 2022-06-08 16:05 | ECG_ITS ---
Measurements Intervals [place] Rate: 87 P: 69 [place]: 214 QRS: 68 QRSD: 74 T: 57 QT: 351 QTc: 424 Interpretive Statements SINUS RHYTHM WITH FIRST DEGREE AV BLOCK ANTEROSEPTAL INFARCT, AGE INDETERMINATE BORDERLINE T WAVE ABNORMALITY- INFERIOR LEADS BASELINE WANDER- I, II, III ABNORMAL ECG Electronically Signed On 06-08-2022 16:27:06 CDT by Leonel Mckay D.O.
--- NOTE | 2022-06-08 16:06 | ED.SOB ---
HPI - SOB/Dyspnea General Chief Complaint: Shortness of Breath/Dyspnea Stated Complaint: abnormal cxr, collaped lung Time Seen by Provider: 06/08/22 15:56 Source: patient, RN notes reviewed and old records reviewed Mode of arrival: ambulatory Limitations: other (poor historian) History of Present Illness HPI Narrative: This is a 77 year old male who presents for evaluation of left collapse lung. Patient states 2 weeks ago he developed shortness of breath 2 weeks ago. HE also reports productive cough for 2-4 weeks. He has been using his daughter's inhaler with minimal relief. He denies chest pain, fever, nauesa, vomiting or leg weakness. He thinks he may have been diagnosed with COPD in the past. Related Data Home Medications Medication Instructions Recorded Confirmed gabapentin 300 mg capsule 600 mg PO QID 08/09/21 08/09/21 Allergies Allergy/AdvReac Type Severity Reaction Status Date / Time iohexol AdvReac Difficulty Verified 08/05/21 10:39 [From contrast - CT, X-RAY] Breathing Review of Systems Review of Systems: All systems reviewed & are unremarkable except as noted in HPI and below Constitutional: Constitutional: Denies chills, Denies fatigue and Denies fever(s) ENT: Reports nasal congestion Cardiovascular: Cardiovascular: Denies chest pain and Denies rapid heart rate Respiratory: Respiratory: Reports cough and Reports dyspnea Gastrointestinal: Gastrointestinal: Denies abdominal pain, Denies nausea and Denies vomiting Psychiatric: Psychiatric: Denies anxiety and Denies depression [facility] Past Medical History Medical History Community acquired pneumonia Emphysema of lung History of trigeminal neuralgia Surgical History Surgical History History of inguinal hernia repair Family History Family History Other Unknown family medical history Social History Social History Smoking packs per day: 1.5 Smoking cigarettes per day: 30.0 Years smoked: 58 Smoking pack-years: 87.00 Smoking status: Former smoker Tobacco type: cigarettes Second hand tobacco smoke exposure: Yes Additional smoking assessment comments: Quit smoking 10 months ago after having COVID Alcohol intake: former Substance use: never Substance use type: does not use Spiritual care concerns: No Exam Const: Nutritional Appearance: thin Orientation/consciousness: patient oriented x3 HENMT: Mouth: Yes lip normal and Yes moist mucous membranes Eyes: EOM: EOMs intact bilaterally Chest: Chest palpation & inspection: normal inspection of the chest Resp: Effort & Inspection: normal respiratory effort Auscultation: wheezes and breath sounds absent on th left Cardio: Rate: regular rate Rhythm: regular rhythm Heart sounds: no murmurs GI: GI Palp: Yes Soft to palpation, No Tenderness to palpation present (GI) and No Guarding due to palpation present (GI) Auscultation: normal bowel sounds Back/Spine/Pelvis: Back: no CVA tenderness Skin: General skin exam: normal color Rashes: no rashes Wounds: no wounds Neuro: General: patient oriented x3, moves all extremities and CN's II-XI intact bilaterally Extrem: General: normal to inspection Psych: Mental Status: mental status grossly normal Affect: normal affect Attitude: cooperative Course Reevaluation(s) Reevaluation #1: Patient is resting comfortable. He is 100% on 4 L NC. He has no complaints. He has been accepted to hospitalist service. Date: 06/08/22 Time: 19:59 Consultations Consultation #1: I notified Dr. Marks of Chest tube place. Patient still has moderate pneumothorax. He states patient can be monitored and if he worsens he will place a bigger chest tube. Date: 06/08/22 Time: 18:22 Vital Signs Vital sign
[2022-06-08 16:25] LABS: Basophils Percent Auto 0.4 % (0.2-1.2); Eosinophils Absolute Auto 0.2 K/mm3 (0-0.3); Eosinophils Percent Auto 2.1 % (0-4.4); Hemoglobin 12.5 g/dL (14.0-18.0); Immature Granulocyte Absolute 0.02 K/mm3 (0.00-0.031); Immature Granulocyte Percent A 0.3 % (0-0.5); Lymphocytes Percent Auto 19.2 % (18.3-44.2); Mean Corpuscular HGB Conc 32.1 g/dl (32-36); Mean Corpuscular Hemoglobin 31.6 pg (26-34); Mean Corpuscular Volume 98.5 fl (80-100); Mean Platelet Volume 9.2 fl (7.4-10.4); Monocytes Absolute Auto 0.7 K/mm3 (0.1-0.6); Monocytes Percent Auto 9.2 % (2.6-8.5); Neutrophils Percent Auto 68.8 % (45.5-73.1); Platelet Count Result 317 k/mm3 (150-375); Red Blood Count 3.96 M/mm3 (4.6-6.20); Red Cell Distribution Width 14.2 % (11.5-14.5); White Blood Count 7.3 K/mm3 (4.5-10.0)
[2022-06-08 16:33] LABS: Alanine Aminotransferase 16 U/L (6-50); Albumin Level 3.7 g/dL (3.5-5.1); Alkaline Phosphatase 79 U/L (38-126); Anion Gap 7 mmol/L (8-16); Aspartate Amino Transferase 29 U/L (17-59); Bilirubin,Total 0.4 mg/dL (0.2-1.3); Blood Urea Nitrogen 17 mg/dL (9-20); Calcium 9.6 mg/dL (8.4-10.2); Carbon Dioxide 30 mmol/L (22-30); Chloride 100 mmol/L (98-107); Estimated CRCL calculation 61 ml/min; Estimated Glomerular Filt Rate > 60; Glucose 142 mg/dL (65-110); Potassium 4.3 mmol/L (3.4-5.0); Sodium 137 mmol/L (137-145)
[2022-06-08 16:43] LABS: INR 1.1; Prothrombin Time 13.5 Seconds (11.1-14.7)
[2022-06-08 16:44] LABS: Partial Thromboplastin Time 28.5 SECONDS (22.3-36.8)
--- NOTE | 2022-06-08 16:45 | PM.CNGS ---
Assessment and Plan Assessment and plan (1) Pneumothorax, left: Code(s): J93.9 - Pneumothorax, unspecified Status: Acute Assessment and Plan: Patient with a large left pneumothorax. Chest tube will be placed in the ER. He is currently stable. We were consulted to follow the chest tube after admission. Continue chest tube to wall suction overnight. Repeat a chest x-ray tomorrow morning. Will follow with serial imaging and monitoring. Plan I have discussed the patient's case and plan of care with Dr. Marks. Thank you for allowing us to see the patient in consultation and we will continue to follow along with you. History of Present Illness Consult details Consult date: 06/08/22 Reason for consult: chest tube (Large left pneumothorax) Requesting physician: Farnaz Canales MD Narrative: This is a 77-year-old male who presented to the ER with outpatient chest x-ray results showing a large left pneumothorax. The patient reports having sinus drainage and a cough for the past 2-3 weeks. He has called his PCP last week, who was out of town. They ordered labs that he was doing through the weekend and early this week. He had a negative COVID test 5 days ago. He also had a negative influenza a and B, and negative strep test. His PCP called him with the chest x-ray results and he was directed to the ER for evaluation. ED physician consulted our service and plans to place a left-sided chest tube. Vital signs are stable. The patient is now seen in the ER. He reports noticing some worsening fatigue and slight shortness of breath over the past 2 weeks. He reports this became significantly worse over the past few days. Denies ever having history of a pneumothorax in the past. He is a long-time smoker but quit about 10 months ago after having COVID. Denies any trauma to the chest or falls recently. Review of Systems Review of Systems: All systems reviewed & are unremarkable except as noted in HPI and below PMFSH Past Medical History Medical History Community acquired pneumonia Emphysema of lung History of trigeminal neuralgia Surgical History Surgical History History of inguinal hernia repair Family History Family History Other Unknown family medical history Social History Social History Smoking packs per day: 1.5 Smoking cigarettes per day: 30.0 Years smoked: 58 Smoking pack-years: 87.00 Smoking status: Former smoker Tobacco type: cigarettes Second hand tobacco smoke exposure: Yes Additional smoking assessment comments: Quit smoking 10 months ago after having COVID Alcohol intake: former Substance use: never Substance use type: does not use Spiritual care concerns: No Meds Home Medications and Allergies Home Medications Medication Instructions Recorded Confirmed Type gabapentin 300 mg capsule 600 mg PO QID 08/09/21 08/09/21 History levofloxacin 500 mg tablet 500 mg PO DAILY #5 tabs 08/11/21 Rx methylprednisolone 4 mg tablets in See Rx Instructions PO .COMPLEX 08/11/21 Rx a dose pack (Medrol (David)) #21 ea Allergies Allergy/AdvReac Type Severity Reaction Status Date / Time iohexol AdvReac Difficulty Verified 08/05/21 10:39 [From contrast - CT, X-RAY] Breathing Vital Signs Vital Signs - 24 hr 06/08/22 15:57 Temperature 99 F Pulse Rate 99 Respiratory Rate 20 Blood Pressure 129/89 Pulse Oximetry 93 Oxygen Delivery Room Air Exam Const: General: comfortable, awake and acute distress mild and respiratory Nutritional Appearance: thin Orientation/consciousness: patient oriented x3 HENMT: Head: normocephalic and atraumatic Ears: hearing grossly normal bilaterally and external ears normal Mouth: Yes moist mucous
--- NOTE | 2022-06-08 17:20 | PC.NURSE ---
LUIS from Dr. Canales for 100 fentanyl and chiquis
[2022-06-08 18:41] LABS: SARS-CoV-2 RNA PCR Negative
--- NOTE | 2022-06-08 19:16 | PC.NURSE ---
Assuming care of pt.
--- NOTE | 2022-06-08 22:17 | PM.IMHP ---
H&P: HPI History of Present Illness Date/Time: 06/08/22 22:17 Chief Complaint: Dyspnea Narrative: Patient is a 69-year-old male past medical history of B12 deficiency, trigeminal neuralgia COPD emphysema presents to ED with complaints of dyspnea. Patient has COPD emphysema, worsening cough for last 2-3 weeks. He denies any trauma. He notes he was playing golf when all the sudden he developed his dypsnea. He is normally very active, lives with his and is independent. He has quit smoking cigarettes 10 months ago after getting diagnosed COVID-19. He states he has never had pneumothorax in the past. He does not take any medications for COPD. He takes gabapentin for trigeminal neuralgia and vitamin B12 supplement. In the ED: COVID negative, flu negative, labs within normal limits, chest x-ray shows large left pneumothorax with collapse of left lung. Patient then had chest tube placed by ER provider. After chest tube placement there is a moderate-sized left pneumothorax. Patient be admitted for further management of spontaneous pneumothorax. Surgery consulted to help monitor pneumothorax. Review of Systems Review of Systems: Constitutional: No Fever, No Chills, No Night Sweats, No Fatigue, No Malaise ENT/Mouth: No Hearing Changes, No Ear Pain, No Nasal Congestion, No Sinus Pain, No Hoarseness, No sore throat, No Rhinorrhea, No Swallowing Difficulty Eyes: No Eye Pain, No Redness, No Vision Changes Cardiovascular: No Chest Pain, No Palpitations, No Dyspnea on Exertion, No Orthopnea, No Claudication, No Edema Respiratory: Endorses productive cough, dyspnea Gastrointestinal: No Nausea, No Vomiting, No Diarrhea, No Constipation, No Abdominal Pain, No Heartburn, No Hematochezia, No Melena Genitourinary: No Dysuria, No Urinary Frequency, No Hematuria, No Urinary Incontinence, No Urgency Musculoskeletal: No Arthralgias, No Myalgias, No Joint Swelling, No Joint Stiffness, No Back Pain Skin: No Skin Lesions, No Pruritis, No Hair Changes Neuro: No Weakness, No Numbness, No Paresthesias, No Loss of Consciousness, No Syncope, No Dizziness, No Headache Psych: No Anxiety/Panic, No Depression, No Insomnia Heme: No Bruising, No Bleeding Lymph: No Adenopathy Endocrine: No Polyuria, No Polydipsia, No Temperature Intolerance [facility] Past Medical History Medical History Community acquired pneumonia Emphysema of lung History of trigeminal neuralgia Surgical History Surgical History History of inguinal hernia repair Family History Family History Other Unknown family medical history Social History Social History Smoking packs per day: 1.5 Smoking cigarettes per day: 30.0 Years smoked: 58 Smoking pack-years: 87.00 Smoking status: Former smoker Tobacco type: cigarettes Second hand tobacco smoke exposure: Yes Additional smoking assessment comments: Quit smoking 10 months ago after having COVID Alcohol intake: former Substance use: never Substance use type: does not use Spiritual care concerns: No Comments He states he does not know his family history, he left his family very young age. He thinks they are on multiple medications but does not know any medical conditions Meds Home Medications and Allergies Home Medications Medication Instructions Recorded Confirmed Type gabapentin 300 mg capsule 600 mg PO QID 08/09/21 08/09/21 History levofloxacin 500 mg tablet 500 mg PO DAILY #5 tabs 08/11/21 Rx methylprednisolone 4 mg tablets in See Rx Instructions PO .COMPLEX 08/11/21 Rx a dose pack (Medrol (David)) #21 ea Allergies Allergy/AdvReac Type Severity Reaction Status Date / Time iohexol AdvReac Difficulty Verified 08/05/21 10:39 [From contrast - CT, X-RAY] Breathing
--- NOTE | 2022-06-08 23:10 | ADMGEN ---
This patient, Jai Turpin, was admitted to Medical Room 347-01. Patient/family oriented to hospital policies and general routines including ID bracelet, bed and alarms, visiting hours, pain management, procedures, bathroom and other care routines, personal items, smoking policy, room service/diet, and visiting hours. Information on how to activate the Rapid Response Team has been discussed. Patient/Family are encouraged to report perceived risks to care and to ask questions if they do not understand what they are told or what they should do.
[2022-06-08 23:52] LABS: Alveolar/Arterial O2 Gradient 130.2 mmHg; Base Excess ABG 2.2 mEq/l (+/-2.0); Carboxyhemoglobin 0.3 % THb (0-2.0); Fractional Inspired Oxygen 32 %; HCO3 ABG 27.3 mEq/l (22.0-26.0); Methemoglobin ABG 0.4 %THb (0-1.5); PCO2 ABG 44.3 mmHg (35.0-45.0); PO2 FiO2 Ratio Arterial Blood 1.44 %; Reduced Hemoglobin 19.7 %THb (0-5.0); Total Hemoglobin 15.2 g/dL (12.0-18.0); pH ABG 7.408 (7.350-7.450)
[2022-06-08 23:55] LABS: Modified Allen's Test Pass; Oxygen Saturation ABG 82.2 % (95.0-100.0); Oxyhemoglobin 79.6 % THb (90.0-100.0); PO2 ABG 46.1 mmHg (80.0-100.0); Site Drawn LEFT RADIAL
[2022-06-08 23:56] LABS: Device NASAL CANNULA
[2022-06-09] VITALS (11 sets, daily range): BP systolic 80–92; BP diastolic 50–60; PULSE 79–121; RESP 16–24; TEMP 36.3–36.7; O2SAT 91–98; BMI 20.5
[2022-06-09] MEDS: FUROSEMIDE INJ 40 MG/4 ML VIAL IV PUSH (00:05)
[2022-06-09] MEDS: guaiFENesin 600 MG/DEXTROMETHORPHAN 30 MG SR TAB 12 HR 1 TAB PO ×3 (00:10→21:06)
[2022-06-09 00:46] LABS: NT Pro B Type Natriuretic Pept 296 pg/mL (5-100)
[2022-06-09 02:16] LABS: Alveolar/Arterial O2 Gradient 312.1 mmHg; Base Excess ABG 3.7 mEq/l (+/-2.0); Fractional Inspired Oxygen 60 %; HCO3 ABG 28.6 mEq/l (22.0-26.0); Oxygen Content ABG 19.8 %vol (16.0-22.0); Oxyhemoglobin 91.7 % THb (90.0-100.0); PCO2 ABG 43.6 mmHg (35.0-45.0); PO2 ABG 67.7 mmHg (80.0-100.0); PO2 FiO2 Ratio Arterial Blood 1.13 %; Total Hemoglobin 15.4 g/dL (12.0-18.0); pH ABG 7.434 (7.350-7.450)
[2022-06-09 02:18] LABS: Device HIGH FLOW NASAL CANN; Modified Allen's Test Pass; Site Drawn LEFT RADIAL
--- NOTE | 2022-06-09 09:04 | PM.PNGS ---
Progress Note: A&P Assessment and Plan (1) Pneumothorax, left: Code(s): J93.9 - Pneumothorax, unspecified Status: Acute Assessment and Plan: improved today, still c small air leak, cont on suction and recheck CXR in am, encourage IS, supplemental O2 as needed (2) COPD (chronic obstructive pulmonary disease): Code(s): J44.9 - Chronic obstructive pulmonary disease, unspecified Status: Acute Assessment and Plan: poor underlying lung function, will need f/u c pulmonology as outpt Subjective Subjective Date/Time Seen: 06/09/22 09:04 feels better this am, still c SOB but improved Review of Systems Review of Systems: All systems reviewed & are unremarkable except as noted in HPI and below Exam Const: General: cooperative, acute distress, in distress and ill appearing Resp: Effort & Inspection: audible wheezes Auscultation: wheezes and diminished lung sounds Other: small air leak Cardio: Rate: regular rate Rhythm: regular rhythm GI: Inspection: normal to inspection Objective Data Vital Signs Vital Signs: Vital Signs - 24 hr 06/08/22 15:57 06/08/22 17:31 06/08/22 18:01 Temperature 37.2 C Pulse Rate 99 76 76 Respiratory Rate 20 22 H 19 Blood Pressure 129/89 128/77 128/67 Pulse Oximetry 93 99 100 Oxygen Delivery Room Air Oxygen Flow Rate 06/08/22 18:51 06/08/22 18:51 06/08/22 19:16 Temperature Pulse Rate 71 70 Respiratory Rate 20 18 Blood Pressure 140/73 143/69 H Pulse Oximetry 100 100 100 Oxygen Delivery Nasal Cannula Oxygen Flow Rate 4 06/08/22 19:17 06/08/22 19:17 06/08/22 20:01 Temperature Pulse Rate 64 76 Respiratory Rate 22 H Blood Pressure 144/71 H Pulse Oximetry 100 100 Oxygen Delivery Nasal Cannula Oxygen Flow Rate 4 06/08/22 20:42 06/08/22 22:49 06/09/22 01:28 Temperature Pulse Rate 76 115 H 121 H Respiratory Rate 20 22 H 24 H Blood Pressure 138/74 110/83 Pulse Oximetry 99 94 93 Oxygen Delivery High Flow Nasal Cannula Oxygen Flow Rate 10 06/09/22 02:21 06/08/22 23:10 06/09/22 06:00 Temperature 36.4 C Pulse Rate 88 Respiratory Rate 24 H 16 Blood Pressure 92/50 L Pulse Oximetry 93 94 98 Oxygen Delivery High Flow Nasal Cannula High Flow Nasal Cannula Oxygen Flow Rate 7 7 06/09/22 01:30 Temperature Pulse Rate 121 H Respiratory Rate 24 H Blood Pressure Pulse Oximetry 93 Oxygen Delivery High Flow Nasal Cannula Oxygen Flow Rate 10 Intake/Output Intake/Output: Intake & Output 06/06/22 06/07/22 06/08/22 06/09/22 23:59 23:59 23:59 23:59 Intake Total 50 Output Total 300 Balance 50 -300 Meds/Results Medications: Active Medications Generic Name Dose Route Start Last Admin Trade Name Freq PRN Reason Stop Dose Admin Benzonatate 200 mg 06/08/22 22:18 Benzonatate 100 Mg Capsule PO TID PRN cough Cyanocobalamin 1,000 mcg 06/09/22 09:00 Cyanocobalamin 1,000 Mcg Tablet PO QAM DARYN Gabapentin 600 mg 06/09/22 09:00 Gabapentin 300 Mg Capsule PO QID DARYN Guaifenesin/Dextromethorphan 1 tab 06/09/22 09:00 Guaifenesin 600 Mg/Dextromethorphan 30 Mg Sr Tab 12 Hr PO Q12HR DARYN Acetaminophen 1,000 mg in 100 mls @ 400 mls/hr 06/08/22 19:51 Ofirmev 1,000 Mg Ivpb IVPB 06/09/22 19:50 Q6H PRN Mild Pain (1-3) or Fever Levofloxacin 750 mg 06/09/22 09:00 Levofloxacin 750 Mg Tablet PO DAILY DARYN Morphine Sulfate 4 mg 06/08/22 19:51 Morphine Sulfate (*Crx) 4 Mg/Ml Inj IV PUSH Q2H PRN Pain Rated 7-10 Ondansetron HCl 4 mg 06/08/22 19:51 Ondansetron Inj 4 Mg/2 Ml Vial IV PUSH Q4H PRN Nausea Radiology Results: ITS Impressions Chest X-Ray 06/09/22 07:42 IMPRESSION: 1. Decrease in size of a now small left pneumothorax with unchanged left chest tube. 2. Opacities throughout the left lung which could represent atelectasis, pulmonary edema or pneumonia superimposed
[2022-06-09] MEDS: GABAPENTIN 300 MG CAPSULE 600 MG PO ×3 (09:31→21:06)
[2022-06-09] MEDS: CYANOCOBALAMIN 1,000 MCG TABLET 1000 MCG PO (09:31)
[2022-06-09] MEDS: levoFLOXacin 750 MG TABLET PO (09:31)
--- NOTE | 2022-06-09 14:38 | PC.NURSE ---
Patient did not want his 1300 dose of gabapentin. Patient stated I do not need it at this time.
--- NOTE | 2022-06-09 16:31 | PC.NURSE ---
Patient only wants half the dose of gabapentin at this time. 300mg is dispensed rather than then the total dose of 600mg.
[2022-06-09] MEDS: SODIUM CHLORIDE 0.9% IV 250 ML 750 ML IV CONT (17:53)
--- NOTE | 2022-06-09 18:03 | PM.IMPN ---
Progress Note: A&P Assessment and Plan (1) Pneumothorax, left: Code(s): J93.9 - Pneumothorax, unspecified Status: Acute (2) COPD (chronic obstructive pulmonary disease): Code(s): J44.9 - Chronic obstructive pulmonary disease, unspecified Status: Acute Plan # spontaneous pneumothorax left lung -history of COPD emphysema, likely had bleb pop from his excessive coughing. no trauma as per history -pneumothorax is improving but still persistent, continue chest tube to suction -general surgeon consulted who is following case, possibility needing larger chest tube or VATS if persistent pneumothorax despite chest tube # COPD emphysema -with increased productive in cough, may be exacerbation -antibiotics Ancef given in the ED, will start Levaquin daily -continue supplemental oxygen to keep oxygen saturation greater than 90% -no wheezing, holding off on steroid -will give cough suppressants: Mucinex, Tessalon Perles -patient states he stop smoking cigarettes after COVID 19 10 months ago # other chronic conditions -trigeminal neuralgia: Continue home gabapentin -vitamin B12 deficiency: Continue vitamin B12 supplement -history of COVID-19 10 months ago Diet: Regular DVT prophylaxis: SCDs, holding chemoprophylaxis for possible needing larger chest tube Code status: Full code Disposition: Patient admitted for spontaneous pneumothorax, anticipate greater than 3 days for chest tube management. After chest tube is removed anticipate discharge home 06/09/2022 interval history: patient is 71-year-old male with history of COPD emphysema presented with spontaneous pneumothorax was seen by surgery service and chest tube was placed today patient the pain is better and able to breathe, patient had a chest x-ray still shows slight leak seen by surgery service recommending continue chest and reassess tomorrow with the chest x-ray and further recommendation to follow will continue to monitor. Subjective Date/time seen: 06/09/22 18:03 06/09/2022 interval history: patient is 71-year-old male with history of COPD emphysema presented with spontaneous pneumothorax was seen by surgery service and chest tube was placed today patient the pain is better and able to breathe, patient had a chest x-ray still shows slight leak seen by surgery service recommending continue chest and reassess tomorrow with the chest x-ray and further recommendation to follow will continue to monitor. Review of Systems Review of Systems: All systems reviewed & are unremarkable except as noted in HPI and below Exam Narrative: appears chronically ill Patient is comfortable, NAD HEENT: eyes are clear and none icteric LUNGS: normal respiratory effort HEART: RR S1S2 Lower extremities: no edema SKIN: nonjaundiced Neuro: grossly intact. Objective Data Vital Signs Vital Signs: Vital Signs - 24 hr 06/08/22 18:51 06/08/22 18:51 06/08/22 19:16 Temperature Pulse Rate 71 70 Respiratory Rate 20 18 Blood Pressure 140/73 143/69 H Pulse Oximetry 100 100 100 Oxygen Delivery Nasal Cannula Oxygen Flow Rate 4 06/08/22 19:17 06/08/22 19:17 06/08/22 20:01 Temperature Pulse Rate 64 76 Respiratory Rate 22 H Blood Pressure 144/71 H Pulse Oximetry 100 100 Oxygen Delivery Nasal Cannula Oxygen Flow Rate 4 06/08/22 20:42 06/08/22 22:49 06/09/22 01:28 Temperature Pulse Rate 76 115 H 121 H Respiratory Rate 20 22 H 24 H Blood Pressure 138/74 110/83 Pulse Oximetry 99 94 93 Oxygen Delivery High Flow Nasal Cannula Oxygen Flow Rate 10 06/09/22 02:21 06/08/22 23:10 06/09/22 06:00 Temperature 97.6 F Pulse Rate 88 Respiratory Rate 24 H 16 Blood Pressure 92/50 L Pulse Oximetry 93 94 98 Oxygen Delivery High Flow Nasal Cannula High Flow Nasal Cannula Oxygen Flow Rate 7 7 06/09/22 11:01 06/09/22 08:00 06/09/22 14:00 Temperature 97.3 F L Pulse Rate 79 Respiratory Rate 18 Blood Pressure 85/52 L
[2022-06-10] VITALS (8 sets, daily range): BP systolic 96–106; BP diastolic 53–66; PULSE 88–130; RESP 16–24; TEMP 36.6–36.8; O2SAT 90–94
[2022-06-10] MEDS: guaiFENesin 600 MG/DEXTROMETHORPHAN 30 MG SR TAB 12 HR 1 TAB PO ×2 (07:33→21:11)
[2022-06-10] MEDS: levoFLOXacin 750 MG TABLET PO (07:33)
[2022-06-10] MEDS: CYANOCOBALAMIN 1,000 MCG TABLET 1000 MCG PO (07:33)
[2022-06-10] MEDS: GABAPENTIN 300 MG CAPSULE 600 MG PO ×3 (07:33→21:10)
--- NOTE | 2022-06-10 15:03 | PM.PNGS ---
Progress Note: A&P Assessment and Plan (1) Pneumothorax, left: Code(s): J93.9 - Pneumothorax, unspecified Status: Acute Assessment and Plan: I reviewed the chest x-ray this morning and chest tube does not appear to be adequate the treating the pneumothorax. Tube appears to be kinked which is limiting evacuation. Chest tube was withdrawn about 15 cm at the bedside. Air and pleural fluid noted draining from chest tube once it was withdrawn. Will get repeat chest x-ray this afternoon to see if pneumothorax has improved and chest tube is in better position. If air leak persists, might need to consider replacing chest tube with larger sized tube or placement of a 2nd chest tube. (2) COPD (chronic obstructive pulmonary disease): Code(s): J44.9 - Chronic obstructive pulmonary disease, unspecified Status: Acute (3) Acute exacerbation of chronic obstructive airways disease: Code(s): J44.1 - Chronic obstructive pulmonary disease with (acute) exacerbation Status: Acute Subjective Subjective Date/Time Seen: 06/10/22 15:03 Interval history: Having worsening cough today. Pain seems to be well controlled. Exam Resp: Effort & Inspection: Actively coughing productive Auscultation: breath sounds absent on th left Other: Chest tube withdrawn about 15 cm. Re-sutured in place. Positive air leak noted in Pleur-evac. Objective Data Vital Signs Vital Signs: Vital Signs - 24 hr 06/09/22 17:49 06/09/22 18:35 06/09/22 22:00 Temperature 36.7 C Pulse Rate 86 Respiratory Rate 16 Blood Pressure 80/52 L 90/54 L 90/60 L Pulse Oximetry 98 Oxygen Delivery Oxygen Flow Rate 06/09/22 21:06 06/10/22 06:00 06/10/22 05:49 Temperature 36.8 C Pulse Rate 130 H 110 H Respiratory Rate 16 Blood Pressure 96/60 L Pulse Oximetry 98 93 Oxygen Delivery High Flow Therapy with Na Oxygen Flow Rate 5 06/10/22 07:40 06/10/22 08:30 06/10/22 08:00 Temperature Pulse Rate 102 H 102 H Respiratory Rate Blood Pressure 100/66 Pulse Oximetry 90 94 Oxygen Delivery High Flow Nasal Cannula High Flow Nasal Cannula Oxygen Flow Rate 5 5 06/10/22 14:00 Temperature 36.6 C Pulse Rate 113 H Respiratory Rate 24 H Blood Pressure 96/58 L Pulse Oximetry 93 Oxygen Delivery Oxygen Flow Rate Intake/Output Intake/Output: Intake & Output 06/07/22 06/08/22 06/09/22 06/10/22 23:59 23:59 23:59 23:59 Intake Total 50 1370 700 Output Total 300 300 Balance 50 1070 400 Meds/Results Medications: Active Medications Generic Name Dose Route Start Last Admin Trade Name Freq PRN Reason Stop Dose Admin Benzonatate 200 mg 06/08/22 22:18 Benzonatate 100 Mg Capsule PO TID PRN cough Cyanocobalamin 1,000 mcg 06/09/22 09:00 06/10/22 07:33 Cyanocobalamin 1,000 Mcg Tablet PO 1,000 mcg QAM DARYN Administration Gabapentin 600 mg 06/09/22 09:00 06/10/22 07:33 Gabapentin 300 Mg Capsule PO 600 mg QID DARYN Administration Guaifenesin/Dextromethorphan 1 tab 06/09/22 09:00 06/10/22 07:33 Guaifenesin 600 Mg/Dextromethorphan 30 Mg Sr Tab 12 Hr PO 1 tab Q12HR DARYN Administration Levofloxacin 750 mg 06/09/22 09:00 06/10/22 07:33 Levofloxacin 750 Mg Tablet PO 750 mg DAILY DARYN Administration Morphine Sulfate 4 mg 06/08/22 19:51 Morphine Sulfate (*Crx) 4 Mg/Ml Inj IV PUSH Q2H PRN Pain Rated 7-10 Ondansetron HCl 4 mg 06/08/22 19:51 Ondansetron Inj 4 Mg/2 Ml Vial IV PUSH Q4H PRN Nausea Radiology Results: ITS Impressions Chest X-Ray 06/10/22 06:54 Impression: 1: Persistent moderate left pneumothorax with stable position to chest tube. 2: Collapse of the left lung with diffuse consolidation. 3: Subcutaneous emphysema.
--- NOTE | 2022-06-10 15:47 | PM.IMPN ---
Progress Note: A&P Assessment and Plan (1) Pneumothorax, left: Code(s): J93.9 - Pneumothorax, unspecified Status: Acute (2) COPD (chronic obstructive pulmonary disease): Code(s): J44.9 - Chronic obstructive pulmonary disease, unspecified Status: Acute Plan # spontaneous pneumothorax left lung -history of COPD emphysema, likely had bleb pop from his excessive coughing. no trauma as per history -pneumothorax is improving but still persistent, continue chest tube to suction -general surgeon consulted who is following case, possibility needing larger chest tube or VATS if persistent pneumothorax despite chest tube # COPD emphysema -with increased productive in cough, may be exacerbation -antibiotics Ancef given in the ED, will start Levaquin daily -continue supplemental oxygen to keep oxygen saturation greater than 90% -no wheezing, holding off on steroid -will give cough suppressants: Mucinex, Tessalon Perles -patient states he stop smoking cigarettes after COVID 19 10 months ago # other chronic conditions -trigeminal neuralgia: Continue home gabapentin -vitamin B12 deficiency: Continue vitamin B12 supplement -history of COVID-19 10 months ago Diet: Regular DVT prophylaxis: SCDs, holding chemoprophylaxis for possible needing larger chest tube Code status: Full code Disposition: Patient admitted for spontaneous pneumothorax, anticipate greater than 3 days for chest tube management. After chest tube is removed anticipate discharge home 06/09/2022 interval history: patient is 71-year-old male with history of COPD emphysema presented with spontaneous pneumothorax was seen by surgery service and chest tube was placed today patient the pain is better and able to breathe, patient had a chest x-ray still shows slight leak seen by surgery service recommending continue chest and reassess tomorrow with the chest x-ray and further recommendation to follow will continue to monitor. 06/10/2022 interval history: patient is 71-year-old male with history of COPD emphysema presented with spontaneous pneumothorax was seen by surgery service and chest tube was placed, today patient had a chest x-ray still shows persistent pneumothorax seen by surgery service and suspect the chest tube is kinked as was pulled and correct repeat chest x-ray shows improved recommending continue chest and reassess tomorrow with the chest x-ray and further recommendation to follow will continue to monitor. Subjective Date/time seen: 06/10/22 15:47 06/10/2022 interval history: patient is 71-year-old male with history of COPD emphysema presented with spontaneous pneumothorax was seen by surgery service and chest tube was placed, today patient had a chest x-ray still shows persistent pneumothorax seen by surgery service and suspect the chest tube is kinked as was pulled and correct repeat chest x-ray shows improved recommending continue chest and reassess tomorrow with the chest x-ray and further recommendation to follow will continue to monitor. Exam Narrative: appears chronically ill Patient is comfortable, NAD HEENT: eyes are clear and none icteric LUNGS: normal respiratory effort HEART: RR S1S2 Lower extremities: no edema SKIN: nonjaundiced Neuro: grossly intact. Objective Data Vital Signs Vital Signs: Vital Signs - 24 hr 06/09/22 17:49 06/09/22 18:35 06/09/22 22:00 Temperature 98.0 F Pulse Rate 86 Respiratory Rate 16 Blood Pressure 80/52 L 90/54 L 90/60 L Pulse Oximetry 98 Oxygen Delivery Oxygen Flow Rate 06/09/22 21:06 06/10/22 06:00 06/10/22 05:49 Temperature 98.2 F Pulse Rate 130 H 110 H Respiratory Rate 16 Blood Pressure 96/60 L Pulse Oximetry 98 93 Oxygen Delivery High Flow Therapy with Na Oxygen Flow Rate 5 06/10/22 07:40 06/10/22 08:30 06/10/22 08:00 Temperature Pulse Rate 102 H 102 H Respiratory Rate Blood Pressure 100/66 Pulse Oximetry 90 94 Oxygen Del
[2022-06-11 05:24] LABS: Hematocrit 36.6 % (42.0-52.0); Hemoglobin 11.8 g/dL (14.0-18.0); Mean Corpuscular HGB Conc 32.2 g/dl (32-36); Mean Corpuscular Hemoglobin 31.8 pg (26-34); Mean Corpuscular Volume 98.7 fl (80-100); Mean Platelet Volume 9.5 fl (7.4-10.4); Platelet Count Result 230 k/mm3 (150-375); Red Blood Count 3.71 M/mm3 (4.6-6.20); White Blood Count 13.9 K/mm3 (4.5-10.0)
[2022-06-11 05:36] LABS: Anion Gap 2 mmol/L (8-16); Blood Urea Nitrogen 24 mg/dL (9-20); Calcium 8.5 mg/dL (8.4-10.2); Carbon Dioxide 36 mmol/L (22-30); Chloride 95 mmol/L (98-107); Estimated CRCL calculation 65 ml/min; Estimated Glomerular Filt Rate > 60; Glucose 95 mg/dL (65-110); Potassium 4.5 mmol/L (3.4-5.0); Sodium 133 mmol/L (137-145)
[2022-06-11 06:00] VITALS: BP 96/52; PULSE 110; RESP 20; TEMP 36.6; O2SAT 91
[2022-06-11 08:30] VITALS: O2SAT 93
[2022-06-11] MEDS: guaiFENesin 600 MG/DEXTROMETHORPHAN 30 MG SR TAB 12 HR 1 TAB PO ×2 (08:39→20:18)
[2022-06-11] MEDS: levoFLOXacin 750 MG TABLET PO (08:39)
[2022-06-11] MEDS: BENZONATATE 100 MG CAPSULE 200 MG PO ×2 (08:39→20:19)
[2022-06-11] MEDS: CYANOCOBALAMIN 1,000 MCG TABLET 1000 MCG PO (08:39)
[2022-06-11] MEDS: GABAPENTIN 300 MG CAPSULE 600 MG PO ×4 (08:39→20:18)
[2022-06-11 09:32] VITALS: O2SAT 93
--- NOTE | 2022-06-11 12:08 | PM.PNGS ---
Progress Note: A&P Assessment and Plan (1) Pneumothorax, left: Code(s): J93.9 - Pneumothorax, unspecified Status: Acute Assessment and Plan: slowly improving, minimal residual pneumothorax noted on chest x-ray this morning, no air leak repeat two view chest x-ray tomorrow morning on water seal (2) COPD (chronic obstructive pulmonary disease): Code(s): J44.9 - Chronic obstructive pulmonary disease, unspecified Status: Acute (3) Acute exacerbation of chronic obstructive airways disease: Code(s): J44.1 - Chronic obstructive pulmonary disease with (acute) exacerbation Status: Acute Subjective Subjective Date/Time Seen: 06/11/22 12:08 Interval history: Breathing is a little better today. Chest pain controlled. Exam Resp: Effort & Inspection: normal respiratory effort Auscultation: clear to auscultation bilaterally ( Coarse) Other: left chest tube in place with no air leak Objective Data Vital Signs Vital Signs: Vital Signs - 24 hr 06/10/22 14:00 06/10/22 20:13 06/10/22 20:00 Temperature 36.6 C 36.7 C Pulse Rate 113 H 88 Respiratory Rate 24 H 20 Blood Pressure 96/58 L 106/53 L Pulse Oximetry 93 93 93 Oxygen Delivery High Flow Nasal Cannula Oxygen Flow Rate 5 06/11/22 06:00 06/11/22 09:32 06/11/22 08:30 Temperature 36.6 C Pulse Rate 110 H Respiratory Rate 20 Blood Pressure 96/52 L Pulse Oximetry 91 93 93 Oxygen Delivery High Flow Nasal Cannula High Flow Nasal Cannula Oxygen Flow Rate 5 5 Intake/Output Intake/Output: Intake & Output 06/08/22 06/09/22 06/10/22 06/11/22 23:59 23:59 23:59 23:59 Intake Total 50 1370 940 240 Output Total 300 960 800 Balance 50 5828 -07 -593 Meds/Results Medications: Active Medications Generic Name Dose Route Start Last Admin Trade Name Freq PRN Reason Stop Dose Admin Benzonatate 200 mg 06/08/22 22:18 06/11/22 08:39 Benzonatate 100 Mg Capsule PO 200 mg TID PRN Administration cough Cyanocobalamin 1,000 mcg 06/09/22 09:00 06/11/22 08:39 Cyanocobalamin 1,000 Mcg Tablet PO 1,000 mcg QAM DARYN Administration Docusate Sodium 100 mg 06/11/22 21:00 Docusate Sodium 100 Mg Capsule PO Q12HR DARYN Gabapentin 600 mg 06/09/22 09:00 06/11/22 08:39 Gabapentin 300 Mg Capsule PO 600 mg QID DARYN Administration Guaifenesin/Dextromethorphan 1 tab 06/09/22 09:00 06/11/22 08:39 Guaifenesin 600 Mg/Dextromethorphan 30 Mg Sr Tab 12 Hr PO 1 tab Q12HR DARYN Administration Levofloxacin 750 mg 06/09/22 09:00 06/11/22 08:39 Levofloxacin 750 Mg Tablet PO 750 mg DAILY DARYN Administration Morphine Sulfate 4 mg 06/08/22 19:51 Morphine Sulfate (*Crx) 4 Mg/Ml Inj IV PUSH Q2H PRN Pain Rated 7-10 Ondansetron HCl 4 mg 06/08/22 19:51 Ondansetron Inj 4 Mg/2 Ml Vial IV PUSH Q4H PRN Nausea Polyethylene Glycol 17 gm 06/11/22 09:25 Polyethylene Glycol 3350 17 Gm Powd.Pack PO QAM PRN Constipation Radiology Results: ITS Impressions Chest X-Ray 06/11/22 07:32 Impression: 1: Diffuse bilateral airspace disease, left greater than right which may represent edema, atelectasis and/or pneumonia. 2: Stable small left pneumothorax. Stable position to left chest tube. Labs Labs: Laboratory Results - last 24 hr 06/11/22 06/11/22 05:15 05:15 WBC 13.9 H RBC 3.71 L Hgb 11.8 L Hct 36.6 L MCV 98.7 MCH 31.8 MCHC 32.2 RDW 14.0 Plt Count 230 MPV 9.5 Sodium 133 L Potassium 4.5 Chloride 95 L Carbon Dioxide 36 H Anion Gap 2 L BUN 24 H Creatinine 0.70 Estim Creat Clear Calc 65 Estimated GFR > 60 Glucose 95 Calcium 8.5 Imaging Radiologist's impression: Impressions Chest X-Ray 06/10/22 15:25 IMPRESSION: Retracted left chest tube, in good position. Decreased size of the left pneumothorax. Improved aeration of the left lung, with persistent at
--- NOTE | 2022-06-11 13:13 | PM.IMPN ---
Progress Note: A&P Assessment and Plan (1) Pneumothorax, left: Code(s): J93.9 - Pneumothorax, unspecified Status: Acute (2) COPD (chronic obstructive pulmonary disease): Code(s): J44.9 - Chronic obstructive pulmonary disease, unspecified Status: Acute Plan # spontaneous pneumothorax left lung -history of COPD emphysema, likely had bleb pop from his excessive coughing. no trauma as per history -pneumothorax is improving but still persistent, continue chest tube to suction -general surgeon consulted who is following case, possibility needing larger chest tube or VATS if persistent pneumothorax despite chest tube # COPD emphysema -with increased productive in cough, may be exacerbation -antibiotics Ancef given in the ED, will start Levaquin daily -continue supplemental oxygen to keep oxygen saturation greater than 90% -no wheezing, holding off on steroid -will give cough suppressants: Mucinex, Tessalon Perles -patient states he stop smoking cigarettes after COVID 19 10 months ago # other chronic conditions -trigeminal neuralgia: Continue home gabapentin -vitamin B12 deficiency: Continue vitamin B12 supplement -history of COVID-19 10 months ago Diet: Regular DVT prophylaxis: SCDs, holding chemoprophylaxis for possible needing larger chest tube Code status: Full code Disposition: Patient admitted for spontaneous pneumothorax, anticipate greater than 3 days for chest tube management. After chest tube is removed anticipate discharge home 06/09/2022 interval history: patient is 71-year-old male with history of COPD emphysema presented with spontaneous pneumothorax was seen by surgery service and chest tube was placed today patient the pain is better and able to breathe, patient had a chest x-ray still shows slight leak seen by surgery service recommending continue chest and reassess tomorrow with the chest x-ray and further recommendation to follow will continue to monitor. 06/10/2022 interval history: patient is 71-year-old male with history of COPD emphysema presented with spontaneous pneumothorax was seen by surgery service and chest tube was placed, today patient had a chest x-ray still shows persistent pneumothorax seen by surgery service and suspect the chest tube is kinked as was pulled and correct repeat chest x-ray shows improved recommending continue chest and reassess tomorrow with the chest x-ray and further recommendation to follow will continue to monitor. 06/11/2022 interval history: patient is 71-year-old male with history of COPD emphysema presented with spontaneous pneumothorax was seen by surgery service and chest tube was placed, on 06/10 patient had a chest x-ray still showed persistent pneumothorax seen by surgery service and suspect the chest tube is kinked and it was pulled and corrected, repeat chest x-ray shows improved recommending continue chest tube and today repeat chest x-ray showed significant improvement in pneumothorax, surgery service recommending to repeat two views chest x-ray tomorrow on water-seal reassess tomorrow and further recommendation to follow will continue to monitor. Subjective Date/time seen: 06/11/22 13:13 06/11/2022 interval history: patient is 71-year-old male with history of COPD emphysema presented with spontaneous pneumothorax was seen by surgery service and chest tube was placed, on 06/10 patient had a chest x-ray still showed persistent pneumothorax seen by surgery service and suspect the chest tube is kinked and it was pulled and corrected, repeat chest x-ray shows improved recommending continue chest tube and today repeat chest x-ray showed significant improvement in pneumothorax, surgery service recommending to repeat two views chest x-ray tomorrow on water-seal reassess tomorrow and further recommendation to follow will continue to monitor. Review of Systems Review of Systems: All systems reviewed & are unremarkable except as noted in HPI and below
[2022-06-11] MEDS: polyethylene glycoL 3350 17 GM POWD.PACK PO (13:36)
[2022-06-11 16:20] VITALS: BP 110/63; PULSE 82; RESP 20; TEMP 36.5; O2SAT 98
[2022-06-11] MEDS: DOCUSATE SODIUM 100 MG CAPSULE PO (20:18)
[2022-06-11 20:45] VITALS: BP 117/72; PULSE 90; RESP 16; TEMP 36.9; O2SAT 99
[2022-06-12 06:00] VITALS: BP 120/63; PULSE 82; RESP 22; TEMP 36.8; O2SAT 96
[2022-06-12 06:10] LABS: Hemoglobin 11.7 g/dL (14.0-18.0); Mean Corpuscular HGB Conc 31.6 g/dl (32-36); Mean Corpuscular Hemoglobin 31.3 pg (26-34); Mean Corpuscular Volume 98.9 fl (80-100); Mean Platelet Volume 9.2 fl (7.4-10.4); Platelet Count Result 246 k/mm3 (150-375); Red Blood Count 3.74 M/mm3 (4.6-6.20); Red Cell Distribution Width 13.9 % (11.5-14.5)
[2022-06-12 06:24] LABS: Anion Gap 2 mmol/L (8-16); Blood Urea Nitrogen 17 mg/dL (9-20); Calcium 8.7 mg/dL (8.4-10.2); Carbon Dioxide 39 mmol/L (22-30); Chloride 91 mmol/L (98-107); Estimated CRCL calculation 75 ml/min; Estimated Glomerular Filt Rate > 60; Glucose 103 mg/dL (65-110); Potassium 4.2 mmol/L (3.4-5.0); Sodium 132 mmol/L (137-145)
[2022-06-12] MEDS: CYANOCOBALAMIN 1,000 MCG TABLET 1000 MCG PO (09:09)
[2022-06-12] MEDS: GABAPENTIN 300 MG CAPSULE 600 MG PO ×3 (09:09→20:07)
[2022-06-12] MEDS: levoFLOXacin 750 MG TABLET PO (09:09)
[2022-06-12] MEDS: guaiFENesin 600 MG/DEXTROMETHORPHAN 30 MG SR TAB 12 HR 1 TAB PO ×2 (09:09→20:07)
[2022-06-12] MEDS: DOCUSATE SODIUM 100 MG CAPSULE PO ×2 (09:09→20:07)
--- NOTE | 2022-06-12 13:36 | PM.PNGS ---
Progress Note: A&P Assessment and Plan (1) Pneumothorax, left: Code(s): J93.9 - Pneumothorax, unspecified Status: Acute Assessment and Plan: Slowly improving. Chest x-ray this morning on water seal showed stable left pneumothorax. Removed the chest tube at the bedside today. Will repeat chest x-ray tomorrow morning. (2) COPD (chronic obstructive pulmonary disease): Code(s): J44.9 - Chronic obstructive pulmonary disease, unspecified Status: Acute (3) Acute exacerbation of chronic obstructive airways disease: Code(s): J44.1 - Chronic obstructive pulmonary disease with (acute) exacerbation Status: Acute Plan I have discussed the patient's case and plan of care with Dr. Marks, who had seen the patient earlier this morning and requested the chest tube be removed today. Subjective Subjective Date/Time Seen: 06/12/22 11:36 Patient reports: no new complaints, feels better and afebrile Interval history: Patient seen and examined. Chart reviewed from last exam. His O2 requirements are slowly decreasing, but he is still on 4-5L O2 NC. He denies any worsening respiratory symptoms. Reports cough. He was able to sleep well last night. No other complaints at this time. Review of Systems Review of Systems: All systems reviewed & are unremarkable except as noted in HPI and below Exam Const: General: comfortable, no acute distress and awake Resp: Effort & Inspection: normal respiratory effort Auscultation: diminished lung sounds bilateral Other: Left chest tube in place with no air leak. Removed dressing and suture, then removed the chest tube at the bedside with the nurse in the room to assist. Applied a sterile occlusive dressing. Objective Data Vital Signs Vital Signs: Vital Signs - 24 hr 06/11/22 16:20 06/11/22 20:45 06/12/22 06:00 Temperature 97.7 F 98.4 F 98.3 F Pulse Rate 82 90 82 Respiratory Rate 20 16 22 H Blood Pressure 110/63 117/72 120/63 Pulse Oximetry 98 99 96 Intake/Output Intake/Output: Intake & Output 06/09/22 06/10/22 06/11/22 06/12/22 23:59 23:59 23:59 23:59 Intake Total 1370 940 480 480 Output Total 455 350 0645 400 Balance 1070 -20 -870 80 Meds/Results Medications: Active Medications Generic Name Dose Route Start Last Admin Trade Name Freq PRN Reason Stop Dose Admin Benzonatate 200 mg 06/08/22 22:18 06/11/22 20:19 Benzonatate 100 Mg Capsule PO 200 mg TID PRN Administration cough Cyanocobalamin 1,000 mcg 06/09/22 09:00 06/12/22 09:09 Cyanocobalamin 1,000 Mcg Tablet PO 1,000 mcg QAM DARYN Administration Docusate Sodium 100 mg 06/11/22 21:00 06/12/22 09:09 Docusate Sodium 100 Mg Capsule PO 100 mg Q12HR DARYN Administration Gabapentin 600 mg 06/09/22 09:00 06/12/22 09:09 Gabapentin 300 Mg Capsule PO 600 mg QID DARYN Administration Guaifenesin/Dextromethorphan 1 tab 06/09/22 09:00 06/12/22 09:09 Guaifenesin 600 Mg/Dextromethorphan 30 Mg Sr Tab 12 Hr PO 1 tab Q12HR DARYN Administration Levofloxacin 750 mg 06/09/22 09:00 06/12/22 09:09 Levofloxacin 750 Mg Tablet PO 750 mg DAILY DARYN Administration Morphine Sulfate 4 mg 06/08/22 19:51 Morphine Sulfate (*Crx) 4 Mg/Ml Inj IV PUSH Q2H PRN Pain Rated 7-10 Ondansetron HCl 4 mg 06/08/22 19:51 Ondansetron Inj 4 Mg/2 Ml Vial IV PUSH Q4H PRN Nausea Polyethylene Glycol 17 gm 06/11/22 09:25 06/11/22 13:36 Polyethylene Glycol 3350 17 Gm Powd.Pack PO 17 gm QAM PRN Administration Constipation Radiology Results: ITS Impressions Chest X-Ray 06/12/22 07:46 IMPRESSION: 1. Unchanged small left pneumothorax with unchanged position of a left chest tube. 2. Opacities throughout the left lung with dense consolidation in the left mid and lower lung zones which could represent atelectasis or pneumonia. Associated small left pleural effusion is also not excludable. Labs Labs: Lab
[2022-06-12 14:00] VITALS: BP 125/66; PULSE 88; RESP 18; TEMP 36.8; O2SAT 95
[2022-06-12 14:10] VITALS: O2SAT 94
--- NOTE | 2022-06-12 14:41 | P.PNIM_ITS ---
Progress Note: A&P Assessment and Plan (1) Pneumothorax, left: Code(s): J93.9 - Pneumothorax, unspecified Status: Acute (2) COPD (chronic obstructive pulmonary disease): Code(s): J44.9 - Chronic obstructive pulmonary disease, unspecified Status: Acute Plan # spontaneous pneumothorax left lung -history of COPD emphysema, likely had bleb pop from his excessive coughing. no trauma as per history -pneumothorax is improving but still persistent, continue chest tube to suction -general surgeon consulted who is following case, possibility needing larger chest tube or VATS if persistent pneumothorax despite chest tube # COPD emphysema -with increased productive in cough, may be exacerbation -antibiotics Ancef given in the ED, will start Levaquin daily -continue supplemental oxygen to keep oxygen saturation greater than 90% -no wheezing, holding off on steroid -will give cough suppressants: Mucinex, Tessalon Perles -patient states he stop smoking cigarettes after COVID 19 10 months ago # other chronic conditions -trigeminal neuralgia: Continue home gabapentin -vitamin B12 deficiency: Continue vitamin B12 supplement -history of COVID-19 10 months ago Diet: Regular DVT prophylaxis: SCDs, holding chemoprophylaxis for possible needing larger chest tube Code status: Full code Disposition: Patient admitted for spontaneous pneumothorax, anticipate greater than 3 days for chest tube management. After chest tube is removed anticipate discharge home 06/09/2022 interval history: patient is 71-year-old male with history of COPD emphysema presented with spontaneous pneumothorax was seen by surgery service and chest tube was placed today patient the pain is better and able to breathe, patient had a chest x-ray still shows slight leak seen by surgery service recommending continue chest and reassess tomorrow with the chest x-ray and further recommendation to follow will continue to monitor. 06/10/2022 interval history: patient is 71-year-old male with history of COPD emphysema presented with spontaneous pneumothorax was seen by surgery service and chest tube was placed, today patient had a chest x-ray still shows persistent pneumothorax seen by surgery service and suspect the chest tube is kinked as was pulled and correct repeat chest x-ray shows improved recommending continue chest and reassess tomorrow with the chest x-ray and further recommendation to follow will continue to monitor. 06/11/2022 interval history: patient is 71-year-old male with history of COPD emphysema presented with spontaneous pneumothorax was seen by surgery service and chest tube was placed, on 06/10 patient had a chest x-ray still showed persistent pneumothorax seen by surgery service and suspect the chest tube is kinked and it was pulled and corrected, repeat chest x-ray shows improved recommending continue chest tube and today repeat chest x-ray showed significant improvement in pneumothorax, surgery service recommending to repeat two views chest x-ray tomorrow on water-seal reassess tomorrow and further recommendation to follow will continue to monitor. 06/12/2022 interval history: patient is 71-year-old male with history of COPD emphysema presented with spontaneous pneumothorax was seen by surgery service and chest tube was placed, on 06/10 patient had a chest x-ray still showed persistent pneumothorax seen by surgery service and suspect the chest tube is kinked and it was pulled and corrected, repeat chest x-ray shows improved rec ommending continue chest tube and on 06/11 repeat chest x-ray showed significant improvement in pneumothorax, surgery service recommending to repeat two views chest
[2022-06-12 20:43] VITALS: BP 130/71; PULSE 88; RESP 16; TEMP 36.9; O2SAT 97
[2022-06-12 21:15] VITALS: BP 130/71; PULSE 88; RESP 16; TEMP 36.8; O2SAT 97
[2022-06-13 05:45] LABS: Hematocrit 37.2 % (42.0-52.0); Hemoglobin 11.9 g/dL (14.0-18.0); Mean Corpuscular Hemoglobin 31.5 pg (26-34); Mean Corpuscular Volume 98.4 fl (80-100); Mean Platelet Volume 9.4 fl (7.4-10.4); Platelet Count Result 251 k/mm3 (150-375); Red Blood Count 3.78 M/mm3 (4.6-6.20); Red Cell Distribution Width 13.8 % (11.5-14.5); White Blood Count 7.9 K/mm3 (4.5-10.0)
[2022-06-13 05:49] VITALS: BP 125/54; PULSE 85; RESP 16; TEMP 36.9; O2SAT 94
[2022-06-13 05:54] LABS: Blood Urea Nitrogen 14 mg/dL (9-20); Calcium 8.5 mg/dL (8.4-10.2); Carbon Dioxide > 40 mmol/L (22-30); Chloride 91 mmol/L (98-107); Estimated CRCL calculation 75 ml/min; Estimated Glomerular Filt Rate > 60; Glucose 105 mg/dL (65-110); Potassium 4.5 mmol/L (3.4-5.0); Sodium 132 mmol/L (137-145)
[2022-06-13] MEDS: CYANOCOBALAMIN 1,000 MCG TABLET 1000 MCG PO (08:46)
[2022-06-13] MEDS: GABAPENTIN 300 MG CAPSULE 600 MG PO ×4 (08:46→20:24)
[2022-06-13] MEDS: guaiFENesin 600 MG/DEXTROMETHORPHAN 30 MG SR TAB 12 HR 1 TAB PO ×2 (08:46→20:24)
[2022-06-13] MEDS: DOCUSATE SODIUM 100 MG CAPSULE PO ×2 (08:46→20:24)
[2022-06-13] MEDS: levoFLOXacin 750 MG TABLET PO (08:46)
--- NOTE | 2022-06-13 11:40 | PM.PNGS ---
Progress Note: A&P Assessment and Plan (1) Pneumothorax, left: Code(s): J93.9 - Pneumothorax, unspecified Status: Acute Assessment and Plan: Continues to improve. Chest x-ray this morning showed an unchanged small left pneumothorax status post chest tube removal yesterday. We will sign off at this time. May remove chest tube dressing on and start changing daily. Please call with any surgical questions or concerns. (2) COPD (chronic obstructive pulmonary disease): Code(s): J44.9 - Chronic obstructive pulmonary disease, unspecified Status: Acute (3) Acute exacerbation of chronic obstructive airways disease: Code(s): J44.1 - Chronic obstructive pulmonary disease with (acute) exacerbation Status: Acute Plan I have discussed the patient's case and plan of care with Dr. Marks. Subjective Subjective Date/Time Seen: 06/13/22 11:40 Patient reports: no new complaints Interval history: Patient seen and examined. Reportedly doing well today. No worsening dyspnea or new respiratory complaints. Still on 5 L O2 nasal cannula. Patient was able to ambulate in the halls this morning and tolerated this well. Review of Systems Review of Systems: All systems reviewed & are unremarkable except as noted in HPI and below Exam Const: General: comfortable and no acute distress Orientation/consciousness: patient oriented x3 Resp: Effort & Inspection: labored (Still slightly labored, but seems to be improving) Auscultation: diminished lung sounds bilateral (In the bases left is worse than right) Other: Left lateral chest with gauze dressing dry and intact Psych: Mental Status: mental status grossly normal Insight: Good insight present (Psych) Objective Data Vital Signs Vital Signs: Vital Signs - 24 hr 06/12/22 14:10 06/12/22 14:00 06/12/22 20:43 Temperature 98.2 F 98.5 F Pulse Rate 88 88 Respiratory Rate 18 16 Blood Pressure 125/66 130/71 Pulse Oximetry 94 95 97 Oxygen Delivery High Flow Nasal Cannula Oxygen Flow Rate 5 06/12/22 21:15 06/13/22 05:49 06/13/22 08:36 Temperature 98.3 F 98.4 F Pulse Rate 88 85 Respiratory Rate 16 16 Blood Pressure 130/71 125/54 L Pulse Oximetry 97 94 Oxygen Delivery High Flow Therapy with Na Oxygen Flow Rate 5 Intake/Output Intake/Output: Intake & Output 06/10/22 06/11/22 06/12/22 06/13/22 23:59 23:59 23:59 23:59 Intake Total 940 480 960 240 Output Total 960 1350 400 750 Balance -20 -870 560 -510 Meds/Results Medications: Active Medications Generic Name Dose Route Start Last Admin Trade Name Freq PRN Reason Stop Dose Admin Benzonatate 200 mg 06/08/22 22:18 06/11/22 20:19 Benzonatate 100 Mg Capsule PO 200 mg TID PRN Administration cough Cyanocobalamin 1,000 mcg 06/09/22 09:00 06/13/22 08:46 Cyanocobalamin 1,000 Mcg Tablet PO 1,000 mcg QAM DARYN Administration Docusate Sodium 100 mg 06/11/22 21:00 06/13/22 08:46 Docusate Sodium 100 Mg Capsule PO 100 mg Q12HR DARYN Administration Gabapentin 600 mg 06/09/22 09:00 06/13/22 08:46 Gabapentin 300 Mg Capsule PO 600 mg QID DARYN Administration Guaifenesin/Dextromethorphan 1 tab 06/09/22 09:00 06/13/22 08:46 Guaifenesin 600 Mg/Dextromethorphan 30 Mg Sr Tab 12 Hr PO 1 tab Q12HR DARYN Administration Levofloxacin 750 mg 06/09/22 09:00 06/13/22 08:46 Levofloxacin 750 Mg Tablet PO 750 mg DAILY DARYN Administration Morphine Sulfate 4 mg 06/08/22 19:51 Morphine Sulfate (*Crx) 4 Mg/Ml Inj IV PUSH Q2H PRN Pain Rated 7-10 Ondansetron HCl 4 mg 06/08/22 19:51 Ondansetron Inj 4 Mg/2 Ml Vial IV PUSH Q4H PRN Nausea Polyethylene Glycol 17 gm 06/11/22 09:25 06/11/22 13:36 Polyethylene Glycol 3350 17 Gm Powd.Pack PO 17 gm QAM PRN Administration Constipation Radiology Results: ITS Impressions Chest X-Ray 06/13/22 08:10 IMPRESSION: 1. No signif
[2022-06-13 13:12] VITALS: O2SAT 93
[2022-06-13 15:01] VITALS: BP 131/59; PULSE 84; RESP 20; TEMP 36.8; O2SAT 93
--- NOTE | 2022-06-13 15:36 | PM.IMPN ---
Progress Note: A&P Assessment and Plan (1) Pneumothorax, left: Code(s): J93.9 - Pneumothorax, unspecified Status: Acute (2) COPD (chronic obstructive pulmonary disease): Code(s): J44.9 - Chronic obstructive pulmonary disease, unspecified Status: Acute Plan # spontaneous pneumothorax left lung -history of COPD emphysema, likely had bleb pop from his excessive coughing. no trauma as per history -pneumothorax is improving but still persistent, continue chest tube to suction -general surgeon consulted who is following case, possibility needing larger chest tube or VATS if persistent pneumothorax despite chest tube # COPD emphysema -with increased productive in cough, may be exacerbation -antibiotics Ancef given in the ED, will start Levaquin daily -continue supplemental oxygen to keep oxygen saturation greater than 90% -no wheezing, holding off on steroid -will give cough suppressants: Mucinex, Tessalon Perles -patient states he stop smoking cigarettes after COVID 19 10 months ago # other chronic conditions -trigeminal neuralgia: Continue home gabapentin -vitamin B12 deficiency: Continue vitamin B12 supplement -history of COVID-19 10 months ago Diet: Regular DVT prophylaxis: SCDs, holding chemoprophylaxis for possible needing larger chest tube Code status: Full code Disposition: Patient admitted for spontaneous pneumothorax, anticipate greater than 3 days for chest tube management. After chest tube is removed anticipate discharge home 06/09/2022 interval history: patient is 71-year-old male with history of COPD emphysema presented with spontaneous pneumothorax was seen by surgery service and chest tube was placed today patient the pain is better and able to breathe, patient had a chest x-ray still shows slight leak seen by surgery service recommending continue chest and reassess tomorrow with the chest x-ray and further recommendation to follow will continue to monitor. 06/10/2022 interval history: patient is 71-year-old male with history of COPD emphysema presented with spontaneous pneumothorax was seen by surgery service and chest tube was placed, today patient had a chest x-ray still shows persistent pneumothorax seen by surgery service and suspect the chest tube is kinked as was pulled and correct repeat chest x-ray shows improved recommending continue chest and reassess tomorrow with the chest x-ray and further recommendation to follow will continue to monitor. 06/11/2022 interval history: patient is 71-year-old male with history of COPD emphysema presented with spontaneous pneumothorax was seen by surgery service and chest tube was placed, on 06/10 patient had a chest x-ray still showed persistent pneumothorax seen by surgery service and suspect the chest tube is kinked and it was pulled and corrected, repeat chest x-ray shows improved recommending continue chest tube and today repeat chest x-ray showed significant improvement in pneumothorax, surgery service recommending to repeat two views chest x-ray tomorrow on water-seal reassess tomorrow and further recommendation to follow will continue to monitor. 06/12/2022 interval history: patient is 71-year-old male with history of COPD emphysema presented with spontaneous pneumothorax was seen by surgery service and chest tube was placed, on 06/10 patient had a chest x-ray still showed persistent pneumothorax seen by surgery service and suspect the chest tube is kinked and it was pulled and corrected, repeat chest x-ray shows improved recommending continue chest tube and on 06/11 repeat chest x-ray showed significant improvement in pneumothorax, surgery service recommending to repeat two views chest x-ray today on water-seal which showed stable pneumothorax and chest tube is pulled out, reassess tomorrow and further recommendation to follow will continue to monitor. 06/13/2022 interval history: patient is 71-year-old male with history of COPD emphysema presente
[2022-06-13 21:41] VITALS: BP 140/70; PULSE 80; RESP 22; TEMP 36.7; O2SAT 96
[2022-06-14] VITALS (13 sets, daily range): BP systolic 121–141; BP diastolic 65–81; PULSE 77–102; RESP 18–20; TEMP 36.2–36.3; O2SAT 84–98
[2022-06-14 05:19] LABS: Hematocrit 38.2 % (42.0-52.0); Hemoglobin 11.9 g/dL (14.0-18.0); Mean Corpuscular HGB Conc 31.2 g/dl (32-36); Mean Corpuscular Hemoglobin 31.4 pg (26-34); Mean Corpuscular Volume 100.8 fl (80-100); Platelet Count Result 242 k/mm3 (150-375); Red Blood Count 3.79 M/mm3 (4.6-6.20); White Blood Count 5.1 K/mm3 (4.5-10.0)
[2022-06-14 05:33] LABS: Blood Urea Nitrogen 12 mg/dL (9-20); Calcium 8.8 mg/dL (8.4-10.2); Carbon Dioxide > 40 mmol/L (22-30); Chloride 92 mmol/L (98-107); Estimated CRCL calculation 75 ml/min; Estimated Glomerular Filt Rate > 60; Glucose 98 mg/dL (65-110); Sodium 137 mmol/L (137-145)
--- NOTE | 2022-06-14 09:32 | HOMEO2EVAL ---
Evaluation was performed at [facility] Home Oxygen Evaluation RC: Home Oxygen (O2) Evaluation Start: 06/13/22 15:36 Freq: ONCE Status: Active Protocol: RPE Activity Type Activity Date Activity User E-sign Co-sign Detail Recorded Client Recorded Date Recorded By Document 06/14/22 08:45 [email or web address] [email or web address] 06/14/22 09:32 DJO Document 06/14/22 08:50 [email or web address] [email or web address] 06/14/22 09:32 DJO Document 06/14/22 08:55 [email or web address] [email or web address] 06/14/22 09:32 DJO Document 06/14/22 09:00 [email or web address] [email or web address] 06/14/22 09:32 DJO Document 06/14/22 09:05 [email or web address] [email or web address] 06/14/22 09:32 DJO Document 06/14/22 09:10 [email or web address] [email or web address] 06/14/22 09:32 DJO Document 06/14/22 09:15 [email or web address] [email or web address] 06/14/22 09:32 DJO Document 06/14/22 09:25 [email or web address] [email or web address] 06/14/22 09:32 DJO 06/14/22 06/14/22 06/14/22 08:45 08:50 08:55 Home O2 Evaluation Test Phase Resting Resting Resting Oxygen Delivery Room Air Nasal Cannula Nasal Cannula Oxygen Flow Rate (L/min) 1 2 Pulse Oximetry (90-100 %) 84 L 85 L 86 L Pulse Rate (60-100 beats/min) 89 88 87 Activity Tolerance Treatment Charges O2 Evaluation - Inpatient 06/14/22 06/14/22 06/14/22 09:00 09:05 09:10 Home O2 Evaluation Test Phase Resting Resting Resting Oxygen Delivery Nasal Cannula Nasal Cannula Nasal Cannula Oxygen Flow Rate (L/min) 3 4 5 Pulse Oximetry (90-100 %) 87 L 88 L 91 Pulse Rate (60-100 beats/min) 86 85 84 Activity Tolerance Treatment Charges 06/14/22 06/14/22 09:15 09:25 Home O2 Evaluation Test Phase Exercise Resting Oxygen Delivery Nasal Cannula Nasal Cannula Oxygen Flow Rate (L/min) 5 5 Pulse Oximetry (90-100 %) 90 91 Pulse Rate (60-100 beats/min) 102 H 84 Activity Tolerance Good Treatment Charges
[2022-06-14] MEDS: CYANOCOBALAMIN 1,000 MCG TABLET 1000 MCG PO (09:46)
[2022-06-14] MEDS: guaiFENesin 600 MG/DEXTROMETHORPHAN 30 MG SR TAB 12 HR 1 TAB PO ×2 (09:46→20:30)
[2022-06-14] MEDS: DOCUSATE SODIUM 100 MG CAPSULE PO ×2 (09:46→20:30)
[2022-06-14] MEDS: levoFLOXacin 750 MG TABLET PO (09:46)
[2022-06-14] MEDS: GABAPENTIN 300 MG CAPSULE 600 MG PO ×4 (09:46→20:30)
--- NOTE | 2022-06-14 15:17 | PM.IMPN ---
Progress Note: A&P Assessment and Plan (1) Pneumothorax, left: Code(s): J93.9 - Pneumothorax, unspecified Status: Acute Assessment and Plan: repeat chest x-ray negative. No respiratory distress (2) COPD (chronic obstructive pulmonary disease): Code(s): J44.9 - Chronic obstructive pulmonary disease, unspecified Status: Acute Assessment and Plan: patient did have home O2 evaluation will need 5 L of oxygen on discharge all the time. Continue other supportive medications. Likely discharge tomorrow Subjective Date/time seen: 06/14/22 15:17 no complaints Exam Narrative: appears chronically ill Patient is comfortable, NAD HEENT: eyes are clear and none icteric LUNGS: normal respiratory effort HEART: RR S1S2 Lower extremities: no edema SKIN: nonjaundiced Neuro: grossly intact. Objective Data Vital Signs Vital Signs: Vital Signs - 24 hr 06/13/22 21:41 06/14/22 06:00 06/14/22 08:45 Temperature 98.1 F 97.4 F L Pulse Rate 80 79 89 Respiratory Rate 22 H 20 Blood Pressure 140/70 141/81 H Pulse Oximetry 96 98 84 L Oxygen Delivery Room Air Oxygen Flow Rate 06/14/22 08:50 06/14/22 08:55 06/14/22 09:00 Temperature Pulse Rate 88 87 86 Respiratory Rate Blood Pressure Pulse Oximetry 85 L 86 L 87 L Oxygen Delivery Nasal Cannula Nasal Cannula Nasal Cannula Oxygen Flow Rate 1 2 3 06/14/22 09:05 06/14/22 09:10 06/14/22 09:15 Temperature Pulse Rate 85 84 102 H Respiratory Rate Blood Pressure Pulse Oximetry 88 L 91 90 Oxygen Delivery Nasal Cannula Nasal Cannula Nasal Cannula Oxygen Flow Rate 4 5 5 06/14/22 09:25 06/14/22 14:22 06/14/22 14:00 Temperature 97.2 F L Pulse Rate 84 83 Respiratory Rate 18 Blood Pressure 121/68 Pulse Oximetry 91 96 98 Oxygen Delivery Nasal Cannula High Flow Nasal Cannula Oxygen Flow Rate 5 4 Intake/Output Intake/Output: Intake & Output 06/11/22 06/12/22 06/13/22 06/14/22 23:59 23:59 23:59 23:59 Intake Total 273 051 5767 480 Output Total 0761 829 8804 850 Balance -870 220 -616 -483 Meds/Results Medications: Active Medications Generic Name Dose Route Start Last Admin Trade Name Freq PRN Reason Stop Dose Admin Benzonatate 200 mg 06/08/22 22:18 06/11/22 20:19 Benzonatate 100 Mg Capsule PO 200 mg TID PRN Administration cough Cyanocobalamin 1,000 mcg 06/09/22 09:00 06/14/22 09:46 Cyanocobalamin 1,000 Mcg Tablet PO 1,000 mcg QAM DARYN Administration Docusate Sodium 100 mg 06/11/22 21:00 06/14/22 09:46 Docusate Sodium 100 Mg Capsule PO 100 mg Q12HR DARYN Administration Gabapentin 600 mg 06/09/22 09:00 06/14/22 13:25 Gabapentin 300 Mg Capsule PO 600 mg QID DARYN Administration Guaifenesin/Dextromethorphan 1 tab 06/09/22 09:00 06/14/22 09:46 Guaifenesin 600 Mg/Dextromethorphan 30 Mg Sr Tab 12 Hr PO 1 tab Q12HR DARYN Administration Levofloxacin 750 mg 06/09/22 09:00 06/14/22 09:46 Levofloxacin 750 Mg Tablet PO 06/15/22 09:01 750 mg DAILY DARYN Administration Morphine Sulfate 4 mg 06/08/22 19:51 Morphine Sulfate (*Crx) 4 Mg/Ml Inj IV PUSH Q2H PRN Pain Rated 7-10 Ondansetron HCl 4 mg 06/08/22 19:51 Ondansetron Inj 4 Mg/2 Ml Vial IV PUSH Q4H PRN Nausea Polyethylene Glycol 17 gm 06/11/22 09:25 06/11/22 13:36 Polyethylene Glycol 3350 17 Gm Powd.Pack PO 17 gm QAM PRN Administration Constipation Radiology Results: ITS Impressions Chest X-Ray 06/14/22 06:33 IMPRESSION: 1. Unchanged small left pneumothorax or potentially hydropneumothorax. 2. Interval decrease in the mid and upper lung zones of the diffuse coarse reticular and airspace opacities throughout the left lung consistent with improving atelectasis, pulmonary edema or pneumonia superimposed over emphysema. Labs Labs: Laboratory Results - last 24 hr 06/14/22 06/14/22 05:13 05:14 WBC 5.1 RBC
[2022-06-15 06:00] VITALS: BP 131/67; PULSE 71; RESP 20; TEMP 36.8; O2SAT 98
[2022-06-15] MEDS: DOCUSATE SODIUM 100 MG CAPSULE PO (08:39)
[2022-06-15] MEDS: guaiFENesin 600 MG/DEXTROMETHORPHAN 30 MG SR TAB 12 HR 1 TAB PO (08:39)
[2022-06-15] MEDS: levoFLOXacin 750 MG TABLET PO (08:39)
[2022-06-15] MEDS: GABAPENTIN 300 MG CAPSULE 600 MG PO (08:39)
[2022-06-15] MEDS: CYANOCOBALAMIN 1,000 MCG TABLET 1000 MCG PO (08:39)
--- NOTE | 2022-06-15 12:41 | PM.DS ---
DS: Admitting Diagnosis Discharge Date June 15, 2022 Admitting Diagnosis Pneumothorax DS: Discharge Diagnosis Discharge Diagnosis (1) Pneumothorax, left: Code(s): J93.9 - Pneumothorax, unspecified Status: Acute Assessment and Plan: repeat chest x-ray negative. No respiratory distress Patient did have chest tube which has been removed (2) COPD (chronic obstructive pulmonary disease): Code(s): J44.9 - Chronic obstructive pulmonary disease, unspecified Status: Acute Assessment and Plan: patient did have home O2 evaluation will need 5 L of oxygen on discharge all the time. Continue inhalers. Lungs are relatively clear today. I do not think he is having any significant exacerbation DS: Summary Hospital Course Hospital Course: Admitted for pneumothorax. Chest tube was placed. Review 48 hr ago chest x-ray post removal has remained stable. Respiratory status has remained stable. Patient will be sent home on oxygen. Time Spent with Patient Time attestation: Total time spent providing and/or coordinating discharge services: Exam Narrative: appears chronically ill Patient is comfortable, NAD HEENT: eyes are clear and none icteric LUNGS: normal respiratory effort HEART: RR S1S2 Lower extremities: no edema SKIN: nonjaundiced Neuro: grossly intact. Discharge Plan Discharge Attending physician on discharge: Amaury Colunga Discharging Clinician: Amaury Colunga Patient Disposition: Home, Self-Care Activity: no preference Diet: as tolerated Patient Instructions: Antibiotic Form, How to Stop Smoking (DC) Stand Alone Forms: General Discharge Information Follow-up/Referrals: Griselda Botello MD [Primary Care Provider] - 2 Weeks (Follow up with Dr. Botello on 06/28/22 at 3:30 pm.) Discharge Medications: New albuterol sulfate [Ventolin HFA] 90 mcg/actuation HFA aerosol inhaler 1 inh inhalation QID PRN (Reason: shortness of breath or wheezing) Qty: 6.7 0RF Continued gabapentin 300 mg capsule 600 mg PO QID Date of admission: 06/09/22 08:42 Primary Care Provider: Griselda Botello Admitting Provider: Qi Lemos Attending physician on admission: Qi Lemos Condition: Stable
== END 2022-06-15 16:50 | disposition home or self-care (01) | DRG 201 ==
LOC: ANHED 20:01 → ANH3MED 21:56
PROVIDERS: Family Medicine; Nurse Practitioner; Admitting Provider Family Medicine; Emergency Provider General Practice; PCP Internal Medicine; Visit Provider Chiropractor
DX: J93.83 Other pneumothorax (principal); J43.9 Emphysema, unspecified; Z20.822 Contact with and (suspected) exposure to COVID-19; E53.8 Deficiency of other specified B group vitamins; G50.0 Trigeminal neuralgia; Z87.891 Personal history of nicotine dependence; Z86.16 Personal history of COVID-19
CPT/HCPCS: 32551; 36415; 36600; 71045; 71046; 80048; 80053; 82375; 82805; 83050; 83880; 85025; 85027; 85610; 85730; 87070; 87081; 87205; 87804; 87880; 93005; 94618; 96365; 96375; 97161; 97165; 97530; 97535; 99285; A9270; C1729; C9803; G0378; J0690; J1940; J3010; J7030; U0003; U0005

== ENCOUNTER → 2022-06-26 08:28 | Outpatient (CLI) | payer MEDICARE, SELFPAY ==
--- NOTE | ~2022-06-26 | CT_ITS ---
EXAMINATION: CT diagnostic chest wo con DATE: 06/26/2022 08:55 INDICATION: thoracic aneurysm TECHNIQUE: Computed tomography (CT) of the chest was performed without intravenous contrast. Automate d exposure control and iterative reconstruction technique were employed. The dose-length product was 209.86 mGy-cm. COMPARISON: X-ray chest 06/14/2022, CT chest 08/09/2021. FINDINGS: CHEST: Thoracic aorta: Mild dilation of the ascending aorta up to 3.9 cm, unchanged. Mild arch calcification s. Lung parenchyma and airways: Severe emphysematous change. Apical and peripheral bullae. Moderate poss ibly loculated air collections in the anterior lateral and medial left hemithorax. Small pleural gas collection in the right anterior lung base. Worsening apical pleural scarring. Consolidation and volu me loss in the left dependent lower lobe. Airway secretions, most pronounced in the dependent left lo wer lobe bronchi. Thoracic inlet, axillae and chest wall: No thyroid or soft tissue mass. No axillary lymphadenopathy. Mediastinum: No mass or lymphadenopathy. Heart and pericardium: Normal heart size. No pericardial effusion. Coronary artery calcifications: Moderate. Pleura: No effusion or mass. Upper abdomen: No significant finding. Thoracic bones: No acute osseous finding in the chest. IMPRESSION: Small right basilar pneumothorax. Moderate pleural gas collections in the left hemithorax may be railcar foreman bernardo and/or loculated, although acute pneumothorax is difficult to exclude. Atelectasis/consolidation in the dependent left lower lobe, likely secondary to aspiration. Urgent results reported telephonically to Dr. Rush by Dr. Viveros at 4:28 PM on 06/26/2022. Reviewed, dictated and finalized at location K. IMPRESSION: Small right basilar pneumothorax. Moderate pleural gas collections in the left hemithorax may be chronic and/or loculated, although acute pneumothorax is diff icult to exclude. Atelectasis/consolidation in the dependent left lower lobe, l ikely secondary to aspiration. Urgent results reported telephonically to Dr. Rush by Dr. Viveros at 4:28 PM o n 06/26/2022.
== END ==
PROVIDERS: PCP Internal Medicine; Visit Provider Internal Medicine
DX: I72.8 Aneurysm of other specified arteries (principal); J93.9 Pneumothorax, unspecified; J98.11 Atelectasis
CPT/HCPCS: 71250

== ENCOUNTER → 2022-07-06 09:38 | Outpatient (CLI) | payer MEDICARE, SELFPAY ==
--- NOTE | ~2022-07-06 | XR_ITS ---
XR chest 2V 07/06/2022 09:50 Indication: COPD follow-up. Procedure: 2 view chest Comparison: Comparison to multiple prior studies sequentially, with oldest reviewed study dated 02/2021. Findings: There are improving bilateral perihilar and bibasilar infiltrates. Small left pleural effus ion. There has been resolution of subcutaneous emphysema. There is pneumomediastinum. No definite pne umothorax identified. There are emphysematous changes. Impression: 1: Improving bilateral infiltrates which may represent atelectasis/scarring or improving pneumonia. 2: Persistent pneumomediastinum. No definite pneumothorax. 3: Small left pleural effusion. Reviewed, dictated and finalized at location B. Impression: 1: Improving bilateral infiltrates which may represent atelectasis/scarring or improving pneumonia. 2: Persistent pneumomediastinum. No definite pneumothorax. 3: Small left pleural effusion.
== END ==
PROVIDERS: PCP Internal Medicine; Visit Provider Internal Medicine
DX: J44.9 Chronic obstructive pulmonary disease, unspecified (principal); J93.9 Pneumothorax, unspecified; R91.8 Other nonspecific abnormal finding of lung field; J90 Pleural effusion, not elsewhere classified
CPT/HCPCS: 71046

== ENCOUNTER → 2022-07-20 09:57 | Outpatient (CLI) | payer MEDICARE, SELFPAY ==
--- NOTE | ~2022-07-20 | XR_ITS ---
XR chest 2V DATE: 07/20/2022 10:20 INDICATION: Pneumonia, pneumothorax TECHNIQUE: 2 views COMPARISON: 07/06/2022 2 view chest 06/26/2022 CT chest 08/09/2021 CT chest 06/08/2022 2 view chest 08/2021 2 view chest FINDINGS: Bullous emphysema is noted. There is patchy infiltrate and/atelectasis, left lower lung and small left pleural effusion. Stable residual left pneumothorax and/or pneumomediastinum. IMPRESSION: No significant change since 07/06/2022 Reviewed, dictated and finalized at location B.
== END ==
PROVIDERS: PCP Internal Medicine; Visit Provider Internal Medicine
DX: J18.9 Pneumonia, unspecified organism (principal)
CPT/HCPCS: 71046

== ENCOUNTER → 2022-08-28 13:00 | Outpatient (CLI) | payer MEDICARE, SELFPAY ==
--- NOTE | ~2022-08-28 | XR_ITS ---
EXAMINATION: XR chest 2V DATE: 08/28/2022 13:15 INDICATION: Follow-up pneumothorax TECHNIQUE: PA and lateral views of the chest were obtained. COMPARISON: Chest radiograph dated 07/20/2022 FINDINGS: Hyperexpansion of lungs with increased lucency and architectural distortion in the upper lung zones a nd in the retrosternal clear space consistent with emphysema. Residual small medially loculated left pneumothorax positioned lateral to the aortic knob. Persistent small right pleural effusion with blun ting at the left costophrenic angle and posterior sulcus. Unchanged linear and reticular opacities in the bilateral mid and lower lung zones most likely related to atelectasis/scarring. No right-sided p leural effusion or pneumothorax. Heart size is normal. Mild anterior wedging of a couple mid thoracic vertebral bodies. There are bridging osteophytes at multiple levels in the spine, consistent with di ffuse idiopathic skeletal hyperostosis (DISH). IMPRESSION: 1. Emphysema with no interval change in a small likely chronic loculated paramediastinal left pneumot horax at the medial side of the mid lung zone. 2. Linear and reticular opacities in the bilateral mid and lower lung zones most likely related to at electasis. 3. Blunting of the left costophrenic angle and posterior sulcus which could be due to scarring or sma ll left pleural effusion. Reviewed, dictated and finalized at location B. IMPRESSION: 1. Emphysema with no interval change in a small likely chronic loculated parame diastinal left pneumothorax at the medial side of the mid lung zone. 2. Linear and reticular opacities in the bilateral mid and lower lung zones mos t likely related to atelectasis. 3. Blunting of the left costophrenic angle and posterior sulcus which could be due to scarring or small left pleural effusion.
== END ==
PROVIDERS: PCP Internal Medicine; Visit Provider Internal Medicine
DX: J93.9 Pneumothorax, unspecified (principal)
CPT/HCPCS: 71046

== ENCOUNTER → 2022-11-17 12:26 | Outpatient (CLI) | payer MEDICARE, SELFPAY ==
--- NOTE | ~2022-11-17 | XR_ITS ---
Clinical Indication: COPD PA and lateral views of the chest: Comparison: 08/28/2022 Findings: The lungs are clear, without evidence of focal consolidation or pleural effusion. Stable le ft upper lobe bullous change and underlying COPD. Cardiomediastinal silhouette is within normal limit s. Bones and soft tissues are unremarkable. Impression: COPD with left upper lobe bullous change. No change from prior exam. Reviewed, dictated and finalized at location M. DEND DEPOSIT ENTRY CLERK Impression: COPD with left upper lobe bullous change. No change from prior exam.
== END ==
PROVIDERS: PCP Internal Medicine; Visit Provider Internal Medicine
DX: J44.9 Chronic obstructive pulmonary disease, unspecified (principal); D64.9 Anemia, unspecified
CPT/HCPCS: 71046

== ENCOUNTER → 2022-12-21 12:39 | Outpatient (CLI) | payer MEDICARE, SELFPAY ==
--- NOTE | ~2022-12-21 | XR_ITS ---
EXAMINATION: XR chest 2V DATE: 12/21/2022 12:58 INDICATION: Shortness of breath TECHNIQUE: PA and lateral views of the chest are obtained. COMPARISON: 11/17/2022 FINDINGS: There are airspace opacities of the left lower lobe. A bullous is noted in the left upper l obe. No pleural effusion or pneumothorax. The cardiomediastinal silhouette is normal. There are bridg ing osteophytes at multiple levels in the spine, consistent with diffuse idiopathic skeletal hyperost osis (DISH). IMPRESSION: 1. Airspace opacities of left lower lobe, likely pneumonia. Reviewed, dictated and finalized at location L. H REPAIRER
== END ==
PROVIDERS: PCP Internal Medicine; Visit Provider Internal Medicine
DX: R06.02 Shortness of breath (principal); R91.8 Other nonspecific abnormal finding of lung field
CPT/HCPCS: 71046

== ENCOUNTER → 2023-01-01 14:17 | Outpatient (CLI) | payer MEDICARE, SELFPAY ==
--- NOTE | ~2023-01-01 | XR_ITS ---
EXAMINATION: XR chest 2V Exam Date/Time: 01/01/2023 14:26 PROPERTY DISPOSAL OFFICER HISTORY: pneumonia Comparison: 12/21/2022. RESULT: Lines, tubes, and devices: None. Lungs and pleura: Emphysematous change. Scattered pulmonary bullae. Diffuse reticulonodular opacitie s, most prominent in the left lower lung in the frontal view. No pneumothorax. No focal consolidation . Chronic left costophrenic angle blunting Cardiomediastinal silhouette: Stable. Dilated central pulmonary arteries. Other: No acute osseous or upper abdominal finding. IMPRESSION: Pulmonary opacities may represent bronchiolitis, as can be seen with atypical infection, asthma, aspi ration, and small airways disease. Emphysematous change. Reviewed, dictated and finalized at location K. ERTY DISPOSAL OFFICER IMPRESSION: Pulmonary opacities may represent bronchiolitis, as can be seen with atypical i nfection, asthma, aspiration, and small airways disease. Emphysematous change.
== END ==
PROVIDERS: PCP Internal Medicine; Visit Provider Internal Medicine
DX: J18.9 Pneumonia, unspecified organism (principal); R91.8 Other nonspecific abnormal finding of lung field
CPT/HCPCS: 71046

== ENCOUNTER → 2023-02-12 10:57 | Outpatient (CLI) | payer MEDICARE, SELFPAY ==
--- NOTE | ~2023-02-12 | XR_ITS ---
XR chest 2V DATE: 02/12/2023 11:13 INDICATION: Pneumonia. COPD. TECHNIQUE: 2 views COMPARISON: January 01, 2023. Lateral chest 11/14/2022 2 view chest 07/06/2022 2 view chest 06/26/2022 CT chest FINDINGS: Bilateral hyperinflation and bullous change, consistent with bullous emphysema. There is mild patchy infiltrate in the left lower lung. The lungs otherwise appear clear. Minimal chronic blunting of the left costophrenic angle. No pulmonary vascular congestion or pneumoth orax is detected. Normal heart size. There is aortic calcification, ectasia and tortuosity. IMPRESSION: Mild infiltrate, left lower lung Bullous emphysema Reviewed, dictated and finalized at location B.
== END ==
PROVIDERS: PCP Internal Medicine; Visit Provider Internal Medicine
DX: J18.9 Pneumonia, unspecified organism (principal); J43.9 Emphysema, unspecified
CPT/HCPCS: 71046

== ENCOUNTER 2023-03-21 19:25 | Emergency (ER) | payer MEDICARE, SELFPAY ==
[2023-03-21] VITALS (38 sets, daily range): BP systolic 117–141; BP diastolic 64–121; PULSE 85–115; RESP 17–100; TEMP 36.6; O2SAT 90–100
--- NOTE | ~2023-03-21 | CT_ITS ---
EXAMINATION: CT diagnostic chest wo con DATE: 03/21/2023 21:30 INDICATION: right sided pneumo; bullous emphysema TECHNIQUE: Computed tomography (CT) of the chest was performed without intravenous contrast. Automate d exposure control and iterative reconstruction technique were employed. The dose-length product was 167.44 mGy-cm. COMPARISON: X-ray chest, same date; CT chest 06/26/2022. FINDINGS: CHEST: Thoracic aorta: Mild arch ectasia and mild calcification. Lung parenchyma and airways: Severe emphysematous changes, with extensive architectural distortion an d scarring. Bilateral dependent atelectasis. Improved aeration of the left lower lobe with respect to the prior exam. Left lower lobe bronchiectasis. Multiple pleural blebs in the apex and about the med iastinum. Airway secretions in the right mainstem bronchus. Thoracic inlet, axillae and chest wall: No thyroid or soft tissue mass. No axillary lymphadenopathy. Mediastinum: No mass or lymphadenopathy. Dilated central pulmonary arteries as can be seen with pulmo nary arterial hypertension. Heart and pericardium: Normal heart size. No pericardial effusion. Coronary artery calcifications: Moderate. Pleura: Moderate-large volume right pneumothorax with several areas of pleural scarring. Small volume fluid collection in the right pleural space. Upper abdomen: No significant finding. Thoracic bones: No acute osseous finding in the chest. IMPRESSION: Right hydropneumothorax, with a moderate-large air component, and a small fluid component. Severe emp hysema. Bibasilar atelectasis/consolidation, possibly with a component of chronic aspiration in the l eft lower lobe. Reviewed, dictated and finalized at location K. IMPRESSION: Right hydropneumothorax, with a moderate-large air component, and a small fluid component. Severe emphysema. Bibasilar atelectasis/consolidation, possibly wit h a component of chronic aspiration in the left lower lobe.
--- NOTE | ~2023-03-21 | XR_ITS ---
EXAMINATION: XR chest 1V portable Exam Date/Time: 03/21/2023 20:19 CDT HISTORY: cough, sob Comparison: 02/12/2023. RESULT: Lines, tubes, and devices: None. Lungs and pleura: Severe emphysematous change. Significant architectural distortion in the lung pare nchyma. Biapical and periaortic pleural blebs. Localized pleural gas collection in the right inferola teral pleural space. Pleural line in the right apex with a crescentic rim of pleural gas. Left basila r subsegmental consolidation. Cardiomediastinal silhouette: Stable. Other: No acute osseous or upper abdominal finding. IMPRESSION: Moderate right pneumothorax, which is predominantly localized in the right inferolateral pleural spac e, but does extend to the apex. Left basilar atelectasis/consolidation. Reviewed, dictated and finalized at location K. IMPRESSION: Moderate right pneumothorax, which is predominantly localized in the right infe rolateral pleural space, but does extend to the apex. Left basilar atelectasis/ consolidation.
--- NOTE | 2023-03-21 19:32 | ECG_ITS ---
Measurements Intervals [place] Rate: 103 P: 41 AR: 204 QRS: 62 QRSD: 140 T: 35 QT: 348 QTc: 456 Interpretive Statements SINUS TACHYCARDIA BORDERLINE AV CONDUCTION DELAY RIGHT BUNDLE BRANCH BLOCK VOLTAGE CRITERIA FOR LVH BASELINE ARTIFACT- I, II, AVR, AVF, V2-V6 ABNORMAL ECG COMPARED TO ECG 06/08/2022 16:22:09 SINUS TACHYCARDIA NOW PRESENT RIGHT BUNDLE-BRANCH BLOCK NOW PRESENT Electronically Signed On 03-21-2023 19:56:56 CDT by Leonel Mckay D.O.
[2023-03-21] MEDS: methylPREDNISolone SOD SUCC 125 MG VIAL IV PUSH (19:50)
[2023-03-21] MEDS: SODIUM CHLORIDE 0.9% IV 1,000 ML 999 ML IV CONT (19:51)
[2023-03-21 19:56] LABS: Basophils Percent Auto 0.3 % (0.2-1.2); Eosinophils Percent Auto 0.3 % (0-4.4); Hemoglobin 13.4 g/dL (14.0-18.0); Immature Granulocyte Absolute 0.02 K/mm3 (0.00-0.031); Immature Granulocyte Percent A 0.2 % (0-0.5); Lymphocytes Absolute Auto 1.07 K/mm3 (0.9-3.2); Lymphocytes Percent Auto 10.6 % (18.3-44.2); Mean Corpuscular HGB Conc 31.2 g/dl (32-36); Mean Corpuscular Hemoglobin 31.8 pg (26-34); Mean Corpuscular Volume 101.9 fl (80-100); Mean Platelet Volume 9.3 fl (7.4-10.4); Monocytes Absolute Auto 0.4 K/mm3 (0.1-0.6); Monocytes Percent Auto 4.4 % (2.6-8.5); Neutrophils Absolute Auto 8.5 K/mm3 (1.3-6.7); Neutrophils Percent Auto 84.2 % (45.5-73.1); Platelet Count Result 319 k/mm3 (150-375); Red Blood Count 4.22 M/mm3 (4.6-6.20); Red Cell Distribution Width 13.7 % (11.5-14.5); White Blood Count 10.1 K/mm3 (4.5-10.0)
[2023-03-21] MEDS: IPRATROPIUM BR 0.02% INH SOLN 0.5 MG/2.5 ML VIAL INHALATION (19:56)
[2023-03-21] MEDS: LEVALBUTEROL NEB 1.25 MG/3 ML 2.5 MG INHALATION ×2 (19:57→22:27)
[2023-03-21 20:05] LABS: Alveolar/Arterial O2 Gradient 440.4 mmHg; Base Excess ABG 2.4 mEq/l (+/-2.0); Fractional Inspired Oxygen 100 %; Oxygen Content ABG 18.5 %vol (16.0-22.0); Oxygen Saturation ABG 99.3 % (95.0-100.0); Oxyhemoglobin 97.7 % THb (90.0-100.0); PCO2 ABG 60.1 mmHg (35.0-45.0); PO2 ABG 212.5 mmHg (80.0-100.0); PO2 FiO2 Ratio Arterial Blood 2.13 %; Total Hemoglobin 13.1 g/dL (12.0-18.0); pH ABG 7.316 (7.350-7.450)
--- NOTE | 2023-03-21 20:06 | ED.SOB ---
HPI - SOB/Dyspnea General Chief Complaint: Shortness of Breath/Dyspnea <Karen Woodall MD - Last Filed: 03/23/23 01:48> Stated Complaint: sob <Karen Woodall MD - Last Filed: 03/23/23 01:48> Time Seen by Provider: 03/21/23 19:33 <Karen Woodall MD - Last Filed: 03/23/23 01:48> History of Present Illness HPI Narrative: Patient is a 77-year-old male with a history of COPD presenting with shortness of breath. Patient states that for the last several days he has been increasingly short of breath despite using his inhaler. States that he only tried to use it once today. States that this feels similarly to the time that he had a collapsed lung a couple years ago. States that he stopped smoking 2 years ago. He denies recent fevers, abdominal pain, chest pain, leg swelling, back pain. <Karen Woodall MD - Last Filed: 03/23/23 01:48> Related Data Home Medications: Home Medications Medication Instructions Recorded Confirmed gabapentin 300 mg capsule 600 mg PO QID 08/09/21 06/09/22 carbamazepine 100 mg 100 mg PO Q12H 03/21/23 03/21/23 capsule,extended release [id number] <Karen Woodall MD - Last Filed: 03/23/23 01:48> Allergies/Adverse Reactions: Allergies Allergy/AdvReac Type Severity Reaction Status Date / Time iohexol AdvReac Difficulty Verified 06/09/22 01:29 [From contrast - CT, X-RAY] Breathing <Karen Woodall MD - Last Filed: 03/23/23 01:48> Review of Systems Review of Systems: All systems reviewed & are unremarkable except as noted in HPI and below <Karen Woodall MD - Last Filed: 03/23/23 01:48> PMFSH Past Medical History Medical History: Medical History Community acquired pneumonia Emphysema of lung History of trigeminal neuralgia <Karen Woodall MD - Last Filed: 03/23/23 01:48> Surgical History Surgical History: Surgical History History of inguinal hernia repair <Karen Woodall MD - Last Filed: 03/23/23 01:48> Family History Family History: Family History Other Unknown family medical history <Karen Woodall MD - Last Filed: 03/23/23 01:48> Social History Social History: Social History Smoking packs per day: 1.5 Smoking cigarettes per day: 30.0 Years smoked: 58 Smoking pack-years: 87.00 Smoking status: Current every day smoker Tobacco type: cigarettes Second hand tobacco smoke exposure: Yes Additional smoking assessment comments: Quit smoking 10 months ago after having COVID Alcohol intake: current Drinks per week: 2 Substance use: never Substance use type: does not use Spiritual care concerns: No <Karen Woodall MD - Last Filed: 03/23/23 01:48> Exam Narrative: GENERAL: Cachectic, appears chronically ill, speaking in 2-3 word sentences HEAD: Normocephalic, atraumatic. EYES: PERRLA and EOMI. ENT: Nares clear, no rhinorrhea or epistaxis. Mucous membranes moist. NECK: Supple. CHEST: Very diminished breath sounds bilaterally HEART: Tachycardic, regular rhythm ABDOMEN: Soft, nontender, nondistended EXTREMITIES: Normal range of motion. No edema. SKIN: Warm, dry, no rash. NEURO: No focal deficits. Alert and oriented x3. PSYCH: Normal mood and affect. <Karen Woodall MD - Last Filed: 03/23/23 01:48> Course Course Emergency Course: [facility] 0430: Patient was signed out to dc pending transfer. He was monitored overnight with no change in his condition. He was transferred out at approximately 4:30 a.m.. <Nathaniel Liu MD - Last Filed: 03/22/23 04:26> Vital Signs Vital signs: Vital Signs Temperature 98 F 03/21/23 19:32 Pulse Rate 105 H 03/21/23 19:32 Respiratory Rate 100 H 03/21/23 19:3
[2023-03-21 20:07] LABS: Site Drawn RIGHT RADIAL
[2023-03-21 20:08] LABS: Device NON-REBREATHER MASK; Modified Allen's Test Pass
[2023-03-21 20:08] LABS: Alanine Aminotransferase 19 U/L (6-50); Albumin Level 4.1 g/dL (3.5-5.1); Alkaline Phosphatase 100 U/L (38-126); Anion Gap 5 mmol/L (8-16); Aspartate Amino Transferase 31 U/L (17-59); Bilirubin,Total 0.5 mg/dL (0.2-1.3); Blood Urea Nitrogen 13 mg/dL (9-20); Carbon Dioxide 34 mmol/L (22-30); Chloride 97 mmol/L (98-107); Estimated CRCL calculation 63 ml/min; Estimated Glomerular Filt Rate > 60; Glucose 159 mg/dL (65-110); Potassium 4.9 mmol/L (3.4-5.0); Sodium 136 mmol/L (137-145)
[2023-03-21 20:32] LABS: Influenza A QL RT-PCR Negative (Negative); Influenza B QL RT-PCR Negative (Negative); RSV RNA, RT-PCR Negative (Negative); SARS-CoV-2 RNA PCR Negative (Negative)
--- NOTE | 2023-03-21 20:46 | PC.NURSE ---
Consent signed for chest tube by patient
--- NOTE | 2023-03-21 20:51 | PC.NURSE ---
Demian Grande would like updates at number [phone]
--- NOTE | 2023-03-21 23:29 | PC.NURSE ---
Report called to [facility] charge nurse Andreina.
--- NOTE | 2023-03-21 23:52 | PC.NURSE ---
Patient stated he needed his nightly dose of Gabapentin 600mg PO. Notified Dr. Liu who advised via VRBO to give 600mg Gabapentin PO.
[2023-03-22] VITALS (29 sets, daily range): BP systolic 104–133; BP diastolic 60–74; PULSE 74–96; RESP 15–22; O2SAT 91–100
[2023-03-22] MEDS: GABAPENTIN 300 MG CAPSULE 600 MG PO (00:20)
--- NOTE | 2023-03-22 04:42 | PC.NURSE ---
Notified MELVIN Hdz at [facility] that patient departed ER with [facility]
== END 2023-03-22 04:43 | disposition short-term general hospital (02) ==
PROVIDERS: Emergency Provider Emergency Medicine; PCP Internal Medicine
DX: J43.9 Emphysema, unspecified (principal); J96.92 Respiratory failure, unspecified with hypercapnia; J96.91 Respiratory failure, unspecified with hypoxia; J94.2 Hemothorax; Z20.822 Contact with and (suspected) exposure to COVID-19; Z87.891 Personal history of nicotine dependence; Z87.01 Personal history of pneumonia (recurrent); Z86.16 Personal history of COVID-19; R00.0 Tachycardia, unspecified; R94.31 Abnormal electrocardiogram [ECG] [EKG]; I45.10 Unspecified right bundle-branch block
CPT/HCPCS: 36415; 36600; 71045; 71250; 80053; 82805; 85025; 87637; 93005; 94640; 96361; 96365; 96374; 99285; A9270; C1729; J0456; J2930; J7030

== ENCOUNTER → 2023-07-24 13:19 | Outpatient (CLI) | payer MEDICARE, SELFPAY ==
--- NOTE | ~2023-07-24 | XR_ITS ---
EXAMINATION: XR chest 2V DATE: 07/24/2023 13:48 INDICATION: Chronic obstructive pulmonary disease. TECHNIQUE: Frontal and lateral views of the chest were obtained. COMPARISON: Chest single view 03/21/2023, chest 2 views 02/12/2023, 11/17/2022, chest CT 03/21/2023 FINDINGS: The lungs are hyperexpanded with lucencies and architectural distortion, consistent with em physema. There are chronic reticular opacities in the lungs, worst in left lower lung zone. No pleura l effusion or pneumothorax. The heart size is normal. IMPRESSION: 1. Severe emphysema and chronic lung disease. Reviewed, dictated and finalized at location A.
== END ==
PROVIDERS: PCP Internal Medicine; Visit Provider Internal Medicine
DX: J44.9 Chronic obstructive pulmonary disease, unspecified (principal)
CPT/HCPCS: 71046

== ENCOUNTER 2023-11-20 15:27 | Outpatient (CLI) | payer MEDICARE, SELFPAY | END 2023-11-20 15:28 | disposition home or self-care (01) | LOC: CHSLAB 15:30 | PROVIDERS: PCP Internal Medicine; Visit Provider Family Medicine | DX: B02.9 Zoster without complications (principal) | CPT/HCPCS: 36415; 87254 ==

== ENCOUNTER 2024-10-08 11:28 | Outpatient (CLI) | payer MEDICARE, SELFPAY ==
--- NOTE | ~2024-10-08 | CT_ITS ---
EXAMINATION:CT diagnostic chest wo con DATE: 10/08/2024 12:10 INDICATION: Aortic aneurysm. TECHNIQUE: Computed tomography (CT) of the chest was performed without intravenous contrast. Automate d exposure control and iterative reconstruction technique were employed. The dose-length product (DLP ) was 162.53 mGy-cm. COMPARISON: Chest CT 03/21/2023, 06/26/22 FINDINGS: There is severe emphysema. There is a chronic small left pneumothorax. There are airspace o pacities with volume loss involving left lower lobe. There is mucous plugging in left lower lobe. The re is mild atelectasis in right lower lobe. There is mild pleural thickening bilaterally. Hyperdensit y at the pleura on the left may be changes of pleurodesis. The heart size is normal. There are napier ry artery calcifications. No pericardial effusion. The aorta measures 4.2 cm at the sinuses of Valsal va, 3.9 cm at the sinotubular junction, 3.8 cm in the mid ascending aorta, 3.2 cm at the aortic isthm us, and 3.9 cm in the mid descending aorta. There are gallstones in the gallbladder which is normal s ize. There are bridging endplate osteophytes at multiple levels in the spine, consistent with diffuse idiopathic skeletal hyperostosis (DISH). IMPRESSION: 1. Ectasia of ascending aorta measuring 4.2 cm at the sinuses of Valsalva. 2. Severe emphysema. 3. Chronic small left pneumothorax, stable from 06/26/22. 4. Mucous plugging in left lung lower lobe with near complete collapse of left lung lower lobe. Reviewed, dictated and finalized at location A. OR PYTHON DEVELOPER
== END 2024-10-08 11:29 | disposition home or self-care (01) ==
PROVIDERS: PCP Internal Medicine
DX: I71.21 Aneurysm of the ascending aorta, without rupture (principal); J43.9 Emphysema, unspecified; J93.81 Chronic pneumothorax; R91.8 Other nonspecific abnormal finding of lung field
CPT/HCPCS: 71250

== ENCOUNTER 2024-10-22 11:01 | Outpatient (CLI) | payer MEDICARE, SELFPAY ==
--- NOTE | ~2024-10-22 | XR_ITS ---
Clinical Indication: COPD PA and lateral views of the chest: Comparison: 07/24/2023 Findings: Stable COPD pattern of the lungs. Questionable minimal left pleural effusion versus chronic blunting of left costophrenic angle. Stable right apical scarring. Cardiomediastinal silhouette is within normal limits. Bones and soft tissues are unremarkable. Impression: COPD, unchanged. Stable possible minimal left pleural effusion versus chronic blunting of the left costophrenic angle. Reviewed, dictated and finalized at location . TERIA ATTENDANT Impression: COPD, unchanged. Stable possible minimal left pleural effusion versus chronic blunting of the le ft costophrenic angle.
== END 2024-10-22 11:02 | disposition home or self-care (01) ==
LOC: MICIMG 11:03
PROVIDERS: PCP Internal Medicine; Visit Provider Internal Medicine
DX: J44.9 Chronic obstructive pulmonary disease, unspecified (principal)
CPT/HCPCS: 71046

== ENCOUNTER 2024-11-20 12:17 | Outpatient (CLI) | payer MEDICARE, SELFPAY ==
--- NOTE | ~2024-11-20 | XR_ITS ---
CHEST RADIOGRAPH, PA AND LATERAL CLINICAL HISTORY: COPD . COMPARISON: 10/22/2024 TECHNIQUE: PA and lateral views of the chest. FINDINGS Redemonstration of biapical and subpleural bullous disease. Blunting of the left costophrenic sulcus suggesting a small left-sided pleural effusion versus flatte chris of the bilateral hemidiaphragms, more likely. The remainder of the cardiomediastinal silhouette is otherwise unremarkable. Interstitial thickening detected bilaterally, unchanged from prior system with patient's known severe obstructive pulmonary disease. IMPRESSION: Stable radiographic evaluation of the chest, as detailed above. No focal infiltrates. Reviewed, dictated and finalized at location A. S AND MARKETING SPECIALIST
== END 2024-11-20 12:18 | disposition home or self-care (01) ==
PROVIDERS: PCP Internal Medicine; Visit Provider Internal Medicine
DX: J44.9 Chronic obstructive pulmonary disease, unspecified (principal)
CPT/HCPCS: 71046

== ENCOUNTER 2025-01-17 09:27 | Outpatient (CLI) | payer MEDICARE, SELFPAY | END 2025-01-17 09:28 | disposition home or self-care (01) | LOC: MICIMG 09:28 | PROVIDERS: PCP Internal Medicine; Visit Provider Internal Medicine | DX: M25.512 Pain in left shoulder (principal) | CPT/HCPCS: 73030 ==